=== PATIENT | female | born 1940 | race Caucasian/White ===

== ENCOUNTER 2016-08-12 10:55 | Outpatient (CLI) | payer MEDICARE, OTHER | END 2016-08-12 10:56 | disposition home or self-care (01) | DX: C19 Malignant neoplasm of rectosigmoid junction (principal) ==

== ENCOUNTER 2016-08-19 22:22 | Outpatient (CLI) | payer MEDICARE, OTHER | END 2016-08-19 22:23 | disposition home or self-care (01) | DX: R73.01 Impaired fasting glucose (principal); E78.5 Hyperlipidemia, unspecified ==

== ENCOUNTER 2016-08-24 08:00 | Outpatient (CLI) | payer MEDICARE, OTHER | END 2016-08-24 08:01 | disposition home or self-care (01) | DX: R10.13 Epigastric pain (principal); G89.29 Other chronic pain ==

== ENCOUNTER 2016-08-27 09:33 | Outpatient (CLI) | payer MEDICARE, OTHER | END 2016-08-27 09:34 | disposition home or self-care (01) | DX: C19 Malignant neoplasm of rectosigmoid junction (principal) ==

== ENCOUNTER 2016-11-16 07:17 | Outpatient (CLI) | payer MEDICARE, OTHER | END 2016-11-16 07:18 | disposition home or self-care (01) | DX: E78.5 Hyperlipidemia, unspecified (principal); C18.9 Malignant neoplasm of colon, unspecified; M12.811 Other specific arthropathies, not elsewhere classified, right shoulder ==

== ENCOUNTER 2017-03-07 14:36 | Outpatient (CLI) | payer MEDICARE, OTHER ==
[2017-03-07 19:34] LABS: BASOPHILS % (AUTO) 0.6 %; EOSINOPHILS # (AUTO) 0.1 10^3/uL (0.0-0.7); HCT - HEMATOCRIT 39.5 % (37.0-47.0); HGB - HEMOGLOBIN 13.5 g/dL (12.0-16.0); LYMPHOCYTES % (AUTO) 39.5 %; MEAN CORPUSCULAR HEMOGLOBIN 30.7 pg (27.0-31.0); MEAN CORPUSCULAR VOLUME 90.3 fL (81.0-99.0); MEAN PLATELET VOLUME 8.7 fL (7.9-10.8); MONOCYTES # (AUTO) 0.3 10^3/uL (0.0-1.0); MONOCYTES % (AUTO) 6.8 %; NEUTROPHILS # (AUTO) 2.6 10^3/uL (1.5-6.6); NEUTROPHILS % (AUTO) 51.1 %; RED BLOOD COUNT 4.38 10^6/uL (4.20-5.40); RED CELL DISTRIBUTION WIDTH 12.9 % (12.0-15.0); UNCORRECTED WHITE BLOOD COUNT 5.2 x10^3/uL; WHITE BLOOD COUNT 5.2 x10^3/uL (4.8-10.8)
[2017-03-07 20:26] LABS: ALBUMIN/GLOBULIN RATIO 1.5 (1.0-2.2); BILIRUBIN,TOTAL 0.5 mg/dL (0.2-1.0); CALCIUM 9.6 mg/dL (8.5-10.3); CREATININE 0.6 mg/dL (0.4-1.0); POTASSIUM 3.9 mmol/L (3.5-5.0); TOTAL PROTEIN 6.9 g/dL (6.7-8.2)
== END 2017-03-07 14:37 ==
LOC: LAB.WCP 14:36
PROVIDERS: ATTEND Specialist
DX: C19 Malignant neoplasm of rectosigmoid junction (principal)
CPT/HCPCS: 36415; 80053; 82378; 85025

== ENCOUNTER 2017-04-02 10:06 | Emergency (ER) | payer MEDICARE, OTHER ==
[2017-04-02] MEDS ORDERED: PROPARACAINE 0.5% OPHTH DROPS 15 ML ONE (10:53)
[2017-04-02 13:55] VITALS: BP 159/92
--- NOTE | 2017-04-02 18:53 | ED Physician Documentation ---
History of Present Illness - Stated complaint Stated Complaint: LT SWOLLEN EYE - Chief complaint Chief Complaint: Heent - History obtained from History obtained from: Patient - Additonal information Additional information: Patient is a 76-year-old female presents with a complaint of left eye pain. The left eye pain was present upon arising this morning. Left eye feels irritated and has a foreign body sensation. She does not have any problems with her visual acuity. She denies any injury or preceding illness or cold symptoms. She does have a history of glaucoma that is currently being treated otherwise she has no other eye problems. Review of systems: For pertinent positive and negatives in the review of systems please see the history of present illness, otherwise all other systems have been reviewed and are negative. Dragon disclaimer: Parts of this medical record were created using voice recognition technology. Because of the inherent limitations of this system, occasional same sounding word substitutions do occur and persist despite proofreading. Please read the document for context. Review of Systems Constitutional: denies: Fever, Chills Nose: denies: Rhinorrhea / runny nose, Congestion, Foreign Body, Reviewed and negative Throat: denies: Dental pain / toothache, Oral lesions / sores, Sore throat, Swallowed foreign body, Reviewed and negative PD PAST MEDICAL HISTORY - Past Medical History Cardiovascular: High cholesterol Respiratory: None Neuro: None Endocrine/Autoimmune: None GI: GERD : None HEENT: Glaucoma Psych: None Musculoskeletal: Osteoarthritis Derm: None Other Past Medical History: colon ca - Past Surgical History Past Surgical History: Yes General: Colonoscopy, EGD, 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 HEENT: Cataracts - Present Medications Home Medications: Ambulatory Orders Medication Instructions Recorded Confirmed Cholecalciferol (Vitamin D3) 2,000 units PO DAILY 12/14/13 04/02/17 [Vitamin D-3] Atorvastatin Calcium [Lipitor] 40 mg PO DAILY 07/29/14 04/02/17 Esomeprazole Magnesium [Nexium] 40 mg PO DAILY 07/29/14 04/02/17 Fluoxetine HCl [Prozac] 20 mg ORAL DAILY 04/02/17 04/02/17 Loperamide [Imodium] 2 mg ORAL DAILY 04/02/17 04/02/17 Ranitidine HCl 150 mg PO BID 04/02/17 04/02/17 - Allergies Allergies/Adverse Reactions: Allergies Allergy/AdvReac Type Severity Reaction Status Date / Time valdecoxib AdvReac Intermediate ulcers Verified 04/02/17 10:26 antiinflammatorys AdvReac Severe Nausea Uncoded 04/02/17 10:26 - Social History Does the pt smoke?: No Smoking Status: Never smoker Does the pt drink ETOH?: No Does the pt have substance abuse?: No - Immunizations Immunizations are current?: Yes PD ED PE NORMAL - General General: Alert and oriented X 3, No acute distress, Well developed/nourished - HEENT HEENT: Atraumatic, PERRL, EOMI, Ears normal, Moist mucous membranes, Pharynx benign, Dentition benign, Other (There is mild generalized scleral injection of the left eye. The pupillary response is normal. There is no apparent pupillary defect. There is no proptosis or enophthalmos is. The conjunctiva looks normal. There is no matting or discharge) - Neck Neck: Supple, no meningeal sign Results - Vitals Vitals: Vital Signs - 24 hr 04/02/17 04/02/17 10:22 13:54 Temperature 36.2 C L 36.7 C Heart Rate 69 55 L Respiratory 18 18 Rate Blood Pressure 163/92 H 159/92 H O2 Saturation 96 97 Oxygen O2 Source Room air PD MEDICAL DECISION MAKING - ED course Complexity details: d/w patient, d/w family ED course: Patient presents with a complaint of a painful left eye. There is mild scleral injection globally. There are pupillary response is normal as is visual acuity. Soon as I placed the topical anesthetic she had complete alleviation of her pain consistent with a superficial etiology. I did do pressure testing of the eyes bilaterally and they are normal. Left eye and is not significantly elevated. Fluorescein staining and slit-lamp examination as well as direct endoscopy was performed. There is a small amount of dye uptake on slit lamp and testing. There are multiple superficial punctate keratoses present. The patient's pain returned and was completely abated with topical anesthetic a second time. I see no evidence of acute angle closure glaucoma. It appears that her corneas mildly burnished perhaps from rubbing it. I have no endings or history of a viral etiology so I think conjunctivitis is much less likely. The patient will be treated with analgesics and will rest the eye I suspect she should be much better by tomorrow. I disposition: To home Clinical impression: 1. Superficial punctate keratoses left eye suspects secondary to rubbing at night Departure - Departure Disposition: Home, Self Care Clinical Impression: Corneal abrasion Qualifiers: Encounter type: initial encounter Laterality: left Qualified Code(s): S05.02XA - Injury of conjunctiva and corneal abrasion without foreign body, left eye, initial encounter Condition: Good Instructions: ED Eye Injury Corneal Abrasion Follow-Up: Nishant Caban MD [Primary Care Provider] - Discharge Date/Time: 04/02/17 13:54
== END 2017-04-02 13:54 | disposition home or self-care (01) ==
LOC: ED 10:06
DX: S05.02XA Injury of conjunctiva and corneal abrasion without foreign body, left eye, initial encounter (principal); X58.XXXA Exposure to other specified factors, initial encounter; H40.9 Unspecified glaucoma; Z96.659 Presence of unspecified artificial knee joint
CPT/HCPCS: 99283; J3490

== ENCOUNTER 2017-04-14 09:28 | Emergency (ER) | payer MEDICARE, OTHER ==
[2017-04-14] MEDS ORDERED: PROCHLORPERAZINE 10 MG/2 ML VIAL IVP STA (11:15)
[2017-04-14] MEDS ORDERED: cefTRIAXone 1 GM in SODIUM CHLORIDE 0.9% MINIBAG 100 ML IV STA (11:15)
[2017-04-14] MEDS ORDERED: KETOROLAC 60 MG/2 ML VIAL IVP STA (11:15)
[2017-04-14] MEDS ORDERED: SODIUM CHLORIDE 0.9% 1,000 ML IV ONE (11:15)
[2017-04-14] MEDS ORDERED: DEXAMETHASONE 10 MG/ML VIAL IVP STA (11:15)
[2017-04-14] MEDS ORDERED: diphenhydrAMINE INJ 50 MG/ML VIAL IVP STA (11:16)
[2017-04-14 11:57] LABS: BASOPHILS % (AUTO) 0.3 %; EOSINOPHILS % (AUTO) 0.2 %; HCT - HEMATOCRIT 41.8 % (37.0-47.0); LYMPHOCYTES # (AUTO) 1.5 10^3/uL (1.5-3.5); LYMPHOCYTES % (AUTO) 15.8 %; MEAN CORPUSCULAR HEMOGLOBIN 29.7 pg (27.0-31.0); MEAN CORPUSCULAR HGB CONC 33.5 g/dL (32.0-36.0); MEAN CORPUSCULAR VOLUME 88.9 fL (81.0-99.0); MONOCYTES # (AUTO) 0.4 10^3/uL (0.0-1.0); MONOCYTES % (AUTO) 4.6 %; NEUTROPHILS # (AUTO) 7.7 10^3/uL (1.5-6.6); NEUTROPHILS % (AUTO) 79.1 %; NUCLEATED RED BLOOD CELLS AUTO 0.1 /100WBC; RED BLOOD COUNT 4.71 10^6/uL (4.20-5.40); RED CELL DISTRIBUTION WIDTH 13.1 % (12.0-15.0); UNCORRECTED WHITE BLOOD COUNT 9.8 x10^3/uL; WHITE BLOOD COUNT 9.8 x10^3/uL (4.8-10.8)
[2017-04-14] MEDS ORDERED: diphenhydrAMINE INJ 50 MG/ML VIAL ONE (11:57)
[2017-04-14] MEDS ORDERED: SODIUM CHLORIDE FLUSH 0.9% 10 ML SYRINGE IVP ONE (11:58)
[2017-04-14] MEDS ORDERED: KETOROLAC 30 MG/ML VIAL ONE (11:58)
[2017-04-14] MEDS ORDERED: DEXAMETHASONE 10 MG/ML VIAL ONE (11:58)
[2017-04-14] MEDS ORDERED: PROCHLORPERAZINE 10 MG/2 ML VIAL ONE (11:58)
[2017-04-14] MEDS ORDERED: cefTRIAXone 1 GM VIAL ONE (11:59)
[2017-04-14 12:09] LABS: ALBUMIN/GLOBULIN RATIO 1.3 (1.0-2.2); BILIRUBIN,TOTAL 0.5 mg/dL (0.2-1.0); CALCIUM 9.5 mg/dL (8.5-10.3); CREATININE 0.6 mg/dL (0.4-1.0); POTASSIUM 3.9 mmol/L (3.5-5.0)
--- NOTE | 2017-04-14 12:28 | CT Preliminary Report ---
Exam: CT Head W/O IMPRESSION: 1. Mild subarachnoid hemorrhage at the right vertex. MRI could be obtained for further evaluation. [facility] The above critical findings were discussed with Dr. Garland by Dr. Karissa Brenner at 12:26 hrs on 04/14/17. SITE ID: [id number]
--- NOTE | 2017-04-14 12:30 | CT Report ---
EXAM: CT HEAD EXAM DATE: 04/14/2017 12:03 PM. CLINICAL HISTORY: Persistent headache. COMPARISON: None. TECHNIQUE: Multiaxial CT images were obtained from the foramen magnum to the vertex. IV contrast: Non e. Reformats: Coronal. In accordance with CT protocol optimization, one or more of the following dose reduction techniques w ere utilized for this exam: automated exposure control, adjustment of mA and/or KV based on patient s ize, or use of iterative reconstructive technique. FINDINGS: Parenchyma: No intraparenchymal hemorrhage. No evidence of mass, midline shift, or CT findings of acu te infarction. Gan-white differentiation is distinct. Extraaxial Spaces: Dilated sulci. No subdural or epidural fluid collections. There is high density wi thin the posterior sulci at the right apex compatible with subarachnoid hemorrhage adjacent to the fa lx (10/17-). Ventricles: The ventricles and cortical sulci are enlarged, consistent with age-related tissue loss. Sinuses: Imaged paranasal sinuses, orbits, and mastoids show no significant abnormality. Bones: No evidence of fracture or calvarial defect. Other: Diffuse chronic microangiopathic white matter changes are evident. IMPRESSION: 1. Mild subarachnoid hemorrhage at the right vertex. MRI could be obtained for further evaluation. [facility] The above critical findings were discussed with Dr. Garland by Dr. Karissa Brenner at 12:26 hrs on 04/14/17. Referring Provider Line: [phone] SITE ID: [id number]
--- NOTE | 2017-04-14 12:44 | ED Physician Documentation ---
PD HPI HEADACHE - Stated complaint Stated Complaint: HEADACHE,NAUSEA - Chief complaint Chief Complaint: Neuro - History obtained from History obtained from: Patient - History of Present Illness Timing - onset: How many days ago (4) Timing - onset during: Rest Timing - duration: Days (4) Timing - details: Abrupt onset, Still present, Waxing and waning Worst headache ever?: Worst headache ever? Location: Front Quality: Throbbing Associated symptoms: Nausea, Vomiting. No: Fever, Stiff neck Improved by: Rest, Dark room Worsened by: Light, Noise, Moving Contributing factors: No: Anticoagulated Similar symptoms before: Has not had sx before Recently seen: Emergency Dept (Seen in the ED at [place] 4 days ago with the onset of this headache.) - Additional information Additional information: 76-year-old female developed acute onset of acute headache 4 days ago. She was seen at [facility] had CT of the head done and had some improvement in her headache with some pain medication she has had headache repeated daily since then with some vomiting. Today she is having severe headache pain again and his vomiting Review of Systems Constitutional: reports: Fatigue. denies: Fever, Chills Eyes: reports: Photophobia. denies: Decreased vision Ears: denies: Ear pain Nose: reports: Congestion. denies: Rhinorrhea / runny nose Throat: denies: Sore throat Cardiac: denies: Chest pain / pressure, Palpitations Respiratory: reports: Cough. denies: Dyspnea GI: reports: Nausea, Vomiting. denies: Abdominal Pain, Constipation, Diarrhea : denies: Dysuria, Frequency Skin: denies: Rash Musculoskeletal: denies: Neck pain, Back pain, Extremity pain Neurologic: reports: Headache. 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 HEENT: Cataracts - Present Medications Home Medications: Ambulatory Orders Medication Instructions Recorded Confirmed Cholecalciferol (Vitamin D3) 2,000 units PO DAILY 12/14/13 04/02/17 [Vitamin D-3] Atorvastatin Calcium [Lipitor] 40 mg PO DAILY 07/29/14 04/02/17 Esomeprazole Magnesium [Nexium] 40 mg PO DAILY 07/29/14 04/02/17 Fluoxetine HCl [Prozac] 20 mg ORAL DAILY 04/02/17 04/02/17 Loperamide [Imodium] 2 mg ORAL DAILY 04/02/17 04/02/17 Ranitidine HCl 150 mg PO BID 04/02/17 04/02/17 - Allergies Allergies/Adverse Reactions: Allergies Allergy/AdvReac Type Severity Reaction Status Date / Time valdecoxib AdvReac Intermediate ulcers Verified 04/02/17 10:26 antiinflammatorys AdvReac Severe Nausea Uncoded 04/02/17 10:26 - Social History Does the pt smoke?: No Smoking Status: Never smoker Does the pt drink ETOH?: No Does the pt have substance abuse?: No - Immunizations Immunizations are current?: Yes - POLST Patient has POLST: No PD ED PE NORMAL - Vitals Vital signs reviewed: Yes (hypertensive ) - General General: Well developed/nourished, Other (The patient appears to be in pain with an ice bag on the top of her head and she is moaning. ) - HEENT HEENT: Atraumatic, PERRL, EOMI, Other (both TM's are erythematous in the attic and along the umbo. ) - Neck Neck: Supple, no meningeal sign, No bony TTP - Cardiac Cardiac: RRR, No murmur - Respiratory Respiratory: No respiratory distress, Clear bilaterally - Abdomen Abdomen: Soft, Non tender - Back Back: No CVA TTP, No spinal TTP - Derm Derm: Normal color, Warm and dry, No rash - Extremities Extremities: No deformity, No edema - Neuro Neuro: Alert and oriented X 3, No motor deficit, No sensory deficit, Normal speech - Psych Psych: Normal mood, Normal affect Results - Vitals Vitals: Vital Signs - 24 hr 04/14/17 04/14/17 04/14/17 09:34 10:45 12:35 Temperature 36.3 C L 36.4 C L Heart Rate 65 64 58 L Respiratory 16 15 18 Rate Blood Pressure 177/92 H 153/80 H 126/63 O2 Saturation 100 100 97 04/14/17 14:50 Temperature Heart Rate 78 Respiratory 15 Rate Blood Pressure 122/82 H O2 Saturation 99 Oxygen O2 Source Room air - Labs Labs: Laboratory Tests 04/14/17 04/14/17 04/14/17 11:43 11:43 11:43 WBC 9.8 RBC 4.71 Hgb 14.0 Hct 41.8 MCV 88.9 MCH 29.7 MCHC 33.5 RDW 13.1 Plt Count 280 MPV 8.0 Neut # 7.7 H Lymph # 1.5 [place] # 0.4 Eos # 0.0 Baso # 0.0 Absolute Nucleated RBC 0.01 Nucleated RBCs 0.1 Sodium 138 Potassium 3.9 Chloride 101 Carbon Dioxide 27 Anion Gap 10.0 BUN 22 H Creatinine 0.6 Estimated GFR (MDRD) 97 Glucose 114 H Calcium 9.5 Total Bilirubin 0.5 AST 17 ALT 18 Alkaline Phosphatase 72 Troponin I < 0.04 Total Protein 7.0 Albumin 3.9 Globulin 3.1 Albumin/Globulin Ratio 1.3 Lipase 21 L - Rads (name of study) CT head without Radiology: Prelim report reviewed (Impression: 1. Mild subarachnoid hemorrhage at the right vertex. MRI could be obtained for further evaluation.), EMP read indepedently, See rad report Procedures - IVC sono (time) 1100 Bedside IVC sono: IVC measures (cm) (1.30), IVC collapsed c insp (cm) (complete) , Dehydration PD MEDICAL DECISION MAKING - ED course Complexity details: reviewed old records, reviewed results, re-evaluated patient , considered differential, d/w patient, d/w family ED course: 76 y/o female with acute onset of headache 4 days ago so bad that she immediately called 911. She was evaluated at [facility] and had CT head then neg for bleed. She had improvement in her headache with continued background pain and each day she has had severe pain lasting 4-5 hours and she has had to take some pain medications. Today she has return of symptoms and feels like she is going to . She has vomited daily. Here in the ED she is found to be dehydrated on interrogation of the IVC and she appears to have some inflammation in the attic more on the left. She is given IV saline, compazine, benadryl, decadron and toradal and has marked improvement in her pain and affect. Her CT scan today shows sub arrachnoid bleeding in the vertex on the right. Dr. Benson neurosurgery at [facility] has graciously agreed to take this patient in transfer. Departure - Departure Disposition: 02 Transfer Acute Care Hosp Clinical Impression: Subarachnoid bleed Condition: Serious Discharge Date/Time: 04/14/17 15:10
[2017-04-14 16:29] VITALS: BP 122/82
== END 2017-04-14 15:10 | disposition short-term general hospital (02) ==
LOC: ED 09:28
DX: I60.9 Nontraumatic subarachnoid hemorrhage, unspecified (principal); Z96.659 Presence of unspecified artificial knee joint
CPT/HCPCS: 36415; 70450; 80053; 83690; 84484; 85025; 96361; 96374; 96375; 99284; 99285

== ENCOUNTER 2017-04-14 15:05 | Outpatient (CLI) | payer MEDICARE, OTHER | END 2017-04-14 15:06 | disposition short-term general hospital (02) | LOC: EMS 15:05 | PROVIDERS: ATTEND Surgery | DX: R51 Headache (principal); R11.0 Nausea | CPT/HCPCS: A0170; A0425; A0426 ==

== ENCOUNTER 2017-05-16 10:31 | Outpatient (CLI) | payer MEDICARE, OTHER ==
--- NOTE | 2017-05-16 11:35 | CT Report ---
CT BRAIN WITHOUT CONTRAST: 05/16/2017 CLINICAL INDICATION: Followup subarachnoid hemorrhage. COMPARISON: 04/14/2017 TECHNIQUE: Axial CT images of the brain were obtained without intravenous contrast. FINDINGS: The previously noted small amount of subarachnoid hemorrhage at the right posterior vertex has resolved. Mild atrophy is stable. No new hemorrhage is identified. The basilar cisterns are p atent. The visualized orbital contents and paranasal sinuses are unremarkable. IMPRESSION: RESOLUTION OF PREVIOUSLY SEEN SMALL AMOUNT OF RIGHT SUBARACHNOID HEMORRHAGE. NO NEW HEM ORRHAGE IS SEEN. NO DEVELOPING HYDROCEPHALUS. In accordance with CT protocol optimization, one or more of the following dose reduction techniques w ere utilized for this exam: automated exposure control, adjustment of mA and/or KV based on patient size, or use of iterative reconstructive technique. JOB #: [id number] EXT JOB #:[id number]
== END 2017-05-16 10:32 | disposition home or self-care (01) ==
LOC: DI 10:31
PROVIDERS: ATTEND Family Medicine
DX: I60.9 Nontraumatic subarachnoid hemorrhage, unspecified (principal)
CPT/HCPCS: 70450

== ENCOUNTER 2017-06-22 11:54 | Outpatient (CLI) | payer MEDICARE, OTHER | END 2017-06-22 11:55 | disposition critical access hospital (66) | LOC: EMS 11:54 | PROVIDERS: ATTEND Surgery | DX: R07.89 Other chest pain (principal) | CPT/HCPCS: A0425; A0427 ==

== ENCOUNTER 2017-06-22 12:13 | Emergency (ER) | payer MEDICARE, OTHER ==
[2017-06-22 13:00] LABS: BASOPHILS % (AUTO) 0.7 %; EOSINOPHILS % (AUTO) 0.4 %; HCT - HEMATOCRIT 38.3 % (37.0-47.0); HGB - HEMOGLOBIN 13.1 g/dL (12.0-16.0); LYMPHOCYTES # (AUTO) 1.4 10^3/uL (1.5-3.5); LYMPHOCYTES % (AUTO) 22.8 %; MEAN CORPUSCULAR HEMOGLOBIN 30.7 pg (27.0-31.0); MEAN CORPUSCULAR HGB CONC 34.1 g/dL (32.0-36.0); MEAN CORPUSCULAR VOLUME 90.2 fL (81.0-99.0); MEAN PLATELET VOLUME 7.9 fL (7.9-10.8); MONOCYTES # (AUTO) 0.6 10^3/uL (0.0-1.0); MONOCYTES % (AUTO) 9.1 %; NEUTROPHILS # (AUTO) 4.1 10^3/uL (1.5-6.6); RED BLOOD COUNT 4.25 10^6/uL (4.20-5.40); RED CELL DISTRIBUTION WIDTH 14.3 % (12.0-15.0); UNCORRECTED WHITE BLOOD COUNT 6.1 x10^3/uL; WHITE BLOOD COUNT 6.1 x10^3/uL (4.8-10.8)
--- NOTE | 2017-06-22 13:01 | XRAY Preliminary Report ---
Exam: XR CHEST 1 VIEW IMPRESSION: 1. No acute disease in the chest. [facility] SITE ID: [id number]
--- NOTE | 2017-06-22 13:03 | XRAY Report ---
EXAM: CHEST RADIOGRAPHY EXAM DATE: 06/22/2017 12:37 PM. CLINICAL HISTORY: Chest pain. COMPARISON: 06/10/2011. 03/04/2009. TECHNIQUE: 1 view. FINDINGS: Lungs/Pleura: No focal opacities evident. No pleural effusion. No pneumothorax. Mediastinum: Heart size is upper normal. Aorta is mildly tortuous. Aortic atherosclerosis. Other: No acute osseous abnormalities. IMPRESSION: 1. No acute disease in the chest. [facility] Referring Provider Line: [phone] SITE ID: [id number]
[2017-06-22 13:15] LABS: ALBUMIN/GLOBULIN RATIO 1.3 (1.0-2.2); BILIRUBIN,TOTAL 0.8 mg/dL (0.2-1.0); CALCIUM 9.2 mg/dL (8.5-10.3); CREATININE 0.8 mg/dL (0.4-1.0); POTASSIUM 3.6 mmol/L (3.5-5.0); TOTAL PROTEIN 6.9 g/dL (6.7-8.2)
--- NOTE | 2017-06-22 13:54 | ED Physician Documentation ---
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 no asa 2/2 recent ICH no hx CAD, denies HTN lipids DM Review of Systems Constitutional: denies: Fever, Chills Cardiac: reports: Chest pain / pressure Respiratory: denies: Dyspnea, Cough GI: denies: Abdominal Pain, Nausea, Vomiting Neurologic: denies: Generalized weakness, Focal weakness, Numbness Endocrine: denies: Easy bruising / bleeding Immunocompromised: denies: Immunocompromised PD PAST MEDICAL HISTORY - Past Medical History Past Medical History: Yes Cardiovascular: High cholesterol Respiratory: None Neuro: Other Endocrine/Autoimmune: None GI: GERD, Ulcers 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 LEAD: Breast cancer : None HEENT: Glaucoma Psych: None Musculoskeletal: Osteoarthritis Derm: None Other Past Medical History: subarachnoid bleed this past month 2016 - Past Surgical History Past Surgical History: Yes General: Colonoscopy, EGD, Other Ortho: Knee replacement, 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: Other HEENT: Cataracts - Present Medications Home Medications: Ambulatory Orders Medication Instructions Recorded Confirmed Cholecalciferol (Vitamin D3) 2,000 units PO DAILY 12/14/13 06/22/17 [Vitamin D-3] Atorvastatin Calcium [Lipitor] 40 mg PO DAILY 07/29/14 06/22/17 Fluoxetine HCl [Prozac] 20 mg ORAL DAILY 04/02/17 06/22/17 Loperamide [Imodium] 2 mg ORAL DAILY 04/02/17 06/22/17 raNITIdine HCl [Ranitidine HCl] 150 mg PO BID 04/02/17 06/22/17 Lidocaine Patch 5% [Lidoderm Patch] 1 each TOP DAILY PRN #10 patch 06/22/17 Pantoprazole [Protonix] 0 mg PO DAILY 06/22/17 06/22/17 - Allergies Allergies/Adverse Reactions: Allergies Allergy/AdvReac Type Severity Reaction Status Date / Time valdecoxib AdvReac Intermediate ulcers Verified 04/02/17 10:26 antiinflammatorys AdvReac Severe Nausea Uncoded 04/02/17 10:26 - Social History Does the pt smoke?: No Smoking Status: Never smoker Does the pt drink ETOH?: No Does the pt have substance abuse?: No - Immunizations Immunizations are current?: Yes - POLST Patient has POLST: No PD ED PE NORMAL - Vitals Vital signs reviewed: Yes - General General: Alert and oriented X 3 - HEENT HEENT: PERRL - Neck Neck: Supple, no meningeal sign - Cardiac Cardiac: RRR - Respiratory Respiratory: No respiratory distress, Clear bilaterally - Abdomen Abdomen: Soft, Non tender - Derm Derm: Normal color - Extremities Extremities: No deformity, Normal ROM s pain, No edema, No calf tenderness / cord - Neuro Neuro: Alert and oriented X 3 Results - Vitals Vitals: Vital Signs - 24 hr 06/22/17 06/22/17 06/22/17 12:14 12:29 13:29 Temperature 36.2 C L 37.0 C 36.8 C Heart Rate 84 72 68 Respiratory 18 14 16 Rate Blood Pressure 99/60 90/70 99/64 O2 Saturation 94 96 98 06/22/17 06/22/17 06/22/17 14:16 15:52 16:49 Temperature 36.8 C Heart Rate 65 66 69 Respiratory 18 15 18 Rate Blood Pressure 101/55 L 104/69 119/76 O2 Saturation 99 99 98 Oxygen O2 Source Room air - EKG (time done) 1220 Rate: Rate (enter#) (72) Rhythm: NSR Paradox: Normal Intervals: Normal OK Ischemia: Normal ST segments, Q waves (III only) - Labs Labs: Laboratory Tests 06/22/17 06/22/17 06/22/17 12:50 12:50 12:50 WBC 6.1 RBC 4.25 Hgb 13.1 Hct 38.3 MCV 90.2 MCH 30.7 MCHC 34.1 RDW 14.3 Plt Count 281 MPV 7.9 Neut # 4.1 Lymph # 1.4 L [place] # 0.6 Eos # 0.0 Baso # 0.0 Absolute Nucleated RBC 0.00 Nucleated RBC % 0.0 Sodium 137 Potassium 3.6 Chloride 104 Carbon Dioxide 22 Anion Gap 11.0 BUN 13 Creatinine 0.8 Estimated GFR (MDRD) 70 L Glucose 82 Calcium 9.2 Total Bilirubin 0.8 AST 21 ALT 15 Alkaline Phosphatase 80 Troponin I < 0.04 Total Protein 6.9 Albumin 3.9 Globulin 3.0 Albumin/Globulin Ratio 1.3 Lipase 21 L - Rads (name of study) CXR Radiology: See rad report (NACPD) CTA chest Radiology: See rad report (no aneurysm or dissection, atherosclerosis and irreg and dilation of celiac axis 9 mm max, incidental 3 mm ) PD MEDICAL DECISION MAKING - ED course ED course: neg EKG and trop after sx for > 12 hr essentially rules out ACS CTA neg for PE and dissection also no pneumoa, pna effusion, free air after EGD etc Departure - Departure Disposition: 01 Home, Self Care Clinical Impression: Chest pain Qualifiers: Chest pain type: unspecified Qualified Code(s): R07.9 - Chest pain, unspecified Condition: Good Instructions: ED Chest Pain Atypical Unkn Cause Follow-Up: Nishant Cbaan MD [Primary Care Provider] - Prescriptions: Lidocaine Patch 5% [Lidoderm Patch] 1 each TOP DAILY PRN #10 patch PRN Reason: Pain Comments: All the tests today were very reassuring The EKG and blood work do not suggest you had a heart attack The xray and CT scan do not show an aneurysm or blood clot in your chest. Also no pneumonia, or fluid around your heart or lungs, or collapsed lung, or suggestion of perforation from your recent endoscopy. The only abnormalities were a small nodule in your right lung - the radiologist suggests you get follow up imaging in [address] Caban can order - and a slightly enlarged artery in your abdomen which shouldn't be causing symptoms I am not sure what is causing the pain But given the reassuring work up I think it is safe for you to go home for Thanksgiving. One possible cause could be shingles - often the pain precedes the rash - if you develop a red blistering crusting rash on your back please come back to the ER for viral medication Otherwise I have prescribed the lidocaine patches which helped you here in the ER - you can wear that for up to 12 hr a day
[2017-06-22] MEDS ORDERED: IOPAMIDOL-300 100 ML VIAL ONE (13:56)
[2017-06-22] MEDS ORDERED: IOPAMIDOL-300 100 ML VIAL IVP ONE (15:21)
--- NOTE | 2017-06-22 15:43 | CT Report ---
EXAM: CT ANGIOGRAM CHEST EXAM DATE: 06/22/2017 03:25 PM. CLINICAL HISTORY: Cp radiate to the back. COMPARISON: None. TECHNIQUE: Routine helical imaging was performed through the chest in the arterial phase. IV contrast : 100 cc Isovue-300 IV. Reconstructions: Coronal, sagittal, and 3D MIP reconstructions of the aorta. FINDINGS: Vascular Structures: There is a mild degree of atherosclerotic plaque of the thoracic aorta. There is no thoracic aortic aneurysm or dissection. There are [id number] coronary artery calcifications . There is irregularity of the wall of the celiac axis. At approximately 8 mm distal to origin, the v essel appears mildly dilated at 9 mm in diameter. There is less than 50% stenosis of the proximal rig ht renal artery. Left renal artery appears patent without significant stenosis. Lungs/Pleura: There is a 3 mm right middle lobe pulmonary nodule. No consolidation or mass. Trachea a nd central airways appear normal in caliber. Negative for pleural effusion. Mediastinum: There are findings of previous gastric fundoplication surgery. There is a small hiatal h ernia. Heart size is normal. No pericardial effusion. No mediastinal adenopathy. Upper Abdomen: Unremarkable. Other: There is chronic degenerative disease of the lower spine. IMPRESSION: 1. No aneurysm or dissection of thoracic aorta. 2. 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 3. Incidental 3 mm right middle lobe pulmonary nodule. Most likely benign. Fleischner Society guideli adriana would recommend no follow-up in a low risk patient. In a high risk patient, optional twelve-month noncontrast chest CT. [facility] Referring Provider Line: [phone] SITE ID: [id number]
[2017-06-22] MEDS ORDERED: LIDOCAINE PATCH 5% TOP STA (16:36)
[2017-06-22] MEDS ORDERED: ACETAMINOPHEN 325 MG TABLET PO STA (16:39)
[2017-06-22] MEDS ORDERED: LIDOCAINE PATCH 5% TOP ONE (16:46)
[2017-06-22 16:50] VITALS: BP 119/76
[2017-06-22] MEDS ORDERED: ACETAMINOPHEN 325 MG TABLET PO ONE (16:50)
== END 2017-06-22 17:18 | disposition home or self-care (01) ==
LOC: EDUNIT# → ED 12:13
DX: R07.9 Chest pain, unspecified (principal); E78.00 Pure hypercholesterolemia, unspecified; K21.9 Gastro-esophageal reflux disease without esophagitis; M19.90 Unspecified osteoarthritis, unspecified site; Z87.11 Personal history of peptic ulcer disease; Z85.3 Personal history of malignant neoplasm of breast
CPT/HCPCS: 36415; 71010; 71275; 80053; 83690; 84484; 85025; 93005; 99284; A9270; Q9967

== ENCOUNTER 2017-08-10 07:34 | Emergency (ER) | payer MEDICARE, OTHER ==
[2017-08-10] MEDS ORDERED: guaiFENesin/DEXTROMETHORPHAN 10 ML UDC PO STA (07:58)
[2017-08-10] MEDS ORDERED: ALBUTEROL NEB 2.5 MG/3 ML INH STA (07:58)
--- NOTE | 2017-08-10 08:01 | ED Physician Documentation ---
History of Present Illness - Stated complaint Stated Complaint: COLD SX - Chief complaint Chief Complaint: General - Additonal information Additional information: hx from pt 76 female to ER for a productive cough, chest pain with cough, can't sleep 2/2 cough, subj fever further info - pt had SAH Apr 2017, then had GI scopes with biopsies in Jun 2017, then was sent to ER by PMD for CP in Jun and had neg CXR CTPA and cardiac work up pt states she has been coughing since er now acutely worse X 5 days her husbnad has pna she has not been travelling saw her PMD for same - no flu swab or CXR got an rx for tessalon which is not helping no leg edema Review of Systems Constitutional: reports: Fever Cardiac: reports: Chest pain / pressure (with cough) Respiratory: reports: Cough. denies: Hemoptysis, Wheezing GI: reports: Abdominal Pain (from cough) Neurologic: reports: Generalized weakness (exhausted) Endocrine: denies: Easy bruising / bleeding Immunocompromised: denies: Immunocompromised PD PAST MEDICAL HISTORY - Past Medical History Past Medical History: Yes Cardiovascular: High cholesterol Respiratory: None Neuro: Other Endocrine/Autoimmune: None GI: GERD, Ulcers DOCTOR OF PODIATRIC MEDICINE: Breast cancer : None HEENT: Glaucoma Psych: None Musculoskeletal: Osteoarthritis Derm: None - Past Surgical History Past Surgical History: Yes General: Colonoscopy, EGD, Other Ortho: Knee replacement, Carpal Tunnel surgery /DOCTOR OF PODIATRIC MEDICINE: Other HEENT: Cataracts - Present Medications Home Medications: Ambulatory Orders Medication Instructions Recorded Confirmed Cholecalciferol (Vitamin D3) 2,000 units PO DAILY 12/14/13 08/10/17 [Vitamin D-3] Atorvastatin Calcium [Lipitor] 40 mg PO DAILY 07/29/14 08/10/17 Fluoxetine HCl [Prozac] 20 mg ORAL DAILY 04/02/17 08/10/17 Loperamide [Imodium] 2 mg ORAL DAILY 04/02/17 08/10/17 raNITIdine HCl [Ranitidine HCl] 150 mg PO BID 04/02/17 08/10/17 Lidocaine Patch 5% [Lidoderm Patch] 1 each TOP DAILY PRN #10 patch 06/22/1705/18 Pantoprazole [Protonix] 0 mg PO DAILY 06/22/17 08/10/17 Albuterol 2.5 mg INH Q4H PRN #30 neb 08/10/17 guaiFENesin/DEXTROMETHORPHAN 10 ml PO Q6H PRN #120 ml 08/10/17 [Robitussin Dm] predniSONE [Deltasone] 40 mg PO DAILY 3 Days #6 tablet 08/10/17 - Allergies Allergies/Adverse Reactions: Allergies Allergy/AdvReac Type Severity Reaction Status Date / Time valdecoxib AdvReac Intermediate ulcers Verified 04/02/17 10:26 codeine AdvReac Nausea Verified 08/10/17 07:45 antiinflammatorys AdvReac Severe Nausea Uncoded 04/02/17 10:26 narcotics AdvReac Unknown Uncoded 08/10/17 07:45 - Social History Does the pt smoke?: No Smoking Status: Never smoker Does the pt drink ETOH?: No Does the pt have substance abuse?: No - Immunizations Immunizations are current?: Yes - POLST Patient has POLST: No PD ED PE NORMAL - Vitals Vital signs reviewed: Yes (normal sat afebrile) - General General: Alert and oriented X 3 - HEENT HEENT: PERRL - Neck Neck: Supple, no meningeal sign - Cardiac Cardiac: RRR - Respiratory Respiratory: Other (dec, breathing for exam causes intractable cough) - Abdomen Abdomen: Soft, Non tender - Derm Derm: Normal color - Extremities Extremities: No deformity, No edema, No calf tenderness / cord - Neuro Neuro: Alert and oriented X 3 Results - Vitals Vitals: Vital Signs - 24 hr 08/10/17 08/10/17 07:36 08:35 Temperature 36.3 C L Heart Rate 96 108 H Respiratory 20 20 Rate Blood Pressure 126/77 O2 Saturation 98 Oxygen O2 Source Room air - Labs Labs: Laboratory Tests 08/10/17 07:58 Influenza A (Rapid) Negative Influenza B (Rapid) Negative Influenza Types A,B Ag - - Rads (name of study) CXR Radiology: See rad report (no infiltrate bronchial thickening) PD MEDICAL DECISION MAKING - ED course ED course: intial HR fine - slightly tachy after neb - no fever, no pna, do not think pt is septic Departure - Departure Disposition: 01 Home, Self Care Clinical Impression: Bronchitis Condition: Good Instructions: ED URI Viral Follow-Up: Nishant Caban MD [Primary Care Provider] - Prescriptions: Albuterol 2.5 mg INH Q4H PRN #30 neb PRN Reason: wheeze and cough guaiFENesin/DEXTROMETHORPHAN [Robitussin Dm] 10 ml PO Q6H PRN #120 ml PRN Reason: Cough predniSONE [Deltasone] 40 mg PO DAILY 3 Days #6 tablet Comments: The xray did not show pneumonia The influenza test was negative I also sent a test for whooping cough but that will take a few days to be resulted - the ER staff will call you if it is positive Since the nebulizer treatment helped so much in the ER we are giving your the tubing and mask used today to take home and use with your husbands machine (you can share the machine but not the masks) and a prescription for albuterol - and also a short course of steroids to decrease briobchial wall inflammation. I also prescribed robitussin DM which worked well for your cough
--- NOTE | 2017-08-10 08:28 | XRAY Report ---
EXAM: CHEST RADIOGRAPHY EXAM DATE: 08/10/2017 08:17 AM. CLINICAL HISTORY: Productive cough subjective fever SO has pna. COMPARISON: 06/22/2017. TECHNIQUE: 2 views. FINDINGS: Lungs/Pleura: Mild lower lung bronchial thickening. No dense consolidation. No vascular congestion. Mediastinum: Heart size is normal. Aorta is mildly tortuous. Aortic atherosclerosis. Other: Degenerative changes of the thoracic spine. IMPRESSION: 1. Mild lower lobe bronchial thickening which can be seen with bronchitis or reactive airways disease . No dense consolidation. [facility] Referring Provider Line: [phone] SITE ID: [id number]
--- NOTE | 2017-08-10 08:28 | XRAY Preliminary Report ---
Exam: XR CHEST 2 VIEW X-RAY IMPRESSION: 1. Mild lower lobe bronchial thickening which can be seen with bronchitis or reactive airways disease . No dense consolidation. [facility] SITE ID: [id number]
[2017-08-10 09:44] VITALS: BP 120/78
[2017-08-12 15:11] LABS: B. PARAPERTUSSIS DNA NOT DETECTED; B. PERTUSSIS DNA NOT DETECTED; SOURCE NASAL
== END 2017-08-10 10:31 | disposition home or self-care (01) ==
LOC: ED 07:34
DX: J40 Bronchitis, not specified as acute or chronic (principal); E78.5 Hyperlipidemia, unspecified; K21.9 Gastro-esophageal reflux disease without esophagitis
CPT/HCPCS: 71046; 87275; 87276; 87801; 94640; 99283; A9270; J7613

== ENCOUNTER 2017-08-31 10:08 | Emergency (ER) | payer MEDICARE, OTHER ==
[2017-08-31 12:21] VITALS: BP 121/89
--- NOTE | 2017-08-31 12:48 | ED Physician Documentation ---
PD HPI URI - Stated complaint Stated Complaint: COUGH - Chief complaint Chief Complaint: General - History obtained from History obtained from: Patient - History of Present Illness Timing - onset: How many weeks ago (3-4) Timing duration: Weeks Timing details: Gradual onset, Still present Associated symptoms: Chills, Productive cough, Dyspnea. No: Fever Contributing factors: No: Sick contact, Travel, Immunocompromised Similar symptoms before: Has not had sx before Recently seen: Not recently seen Review of Systems Constitutional: denies: Fever, Chills Nose: reports: Congestion, Sinus pressure / pain. denies: Rhinorrhea / runny nose Throat: denies: Sore throat Cardiac: denies: Chest pain / pressure, Palpitations Respiratory: reports: Cough. denies: Dyspnea, Wheezing PD PAST MEDICAL HISTORY - Past Medical History Past Medical History: Yes Cardiovascular: High cholesterol Respiratory: None Neuro: Other Endocrine/Autoimmune: None GI: GERD, Ulcers PORTER BATH: Breast cancer : None HEENT: Glaucoma Psych: None Musculoskeletal: Osteoarthritis Derm: None - Past Surgical History Past Surgical History: Yes General: Colonoscopy, EGD, Other Ortho: Knee replacement, Carpal Tunnel surgery /PORTER BATH: Other HEENT: Cataracts - Present Medications Home Medications: Ambulatory Orders Medication Instructions Recorded Confirmed Cholecalciferol (Vitamin D3) 2,000 units PO DAILY 12/14/13 08/10/17 [Vitamin D-3] Atorvastatin Calcium [Lipitor] 40 mg PO DAILY 07/29/14 08/10/17 Fluoxetine HCl [Prozac] 20 mg ORAL DAILY 04/02/17 08/31/17 Loperamide [Imodium] 2 mg ORAL DAILY 04/02/17 08/31/17 raNITIdine HCl [Ranitidine HCl] 150 mg PO BID 04/02/17 08/31/17 Pantoprazole [Protonix] 0 mg PO DAILY 06/22/17 08/31/17 Levalbuterol HCl [Xopenex] 1.25 mg IH Q4H PRN #30 vial.neb 08/10/17 08/31/17 guaiFENesin/DEXTROMETHORPHAN 10 ml PO Q6H PRN #120 ml 08/10/17 08/31/17 [Robitussin Dm] Benzonatate [Tessalon] 100 mg PO TID PRN #25 capsule 08/31/17 Dexamethasone [Decadron] 4 mg PO DAILY #5 tablet 08/31/17 Doxycycline Monohydrate 100 mg PO BID #14 tablet 08/31/17 Levalbuterol HCl [Xopenex] 1.25 mg IH Q6H PRN #30 vial.neb 08/31/17 - Allergies Allergies/Adverse Reactions: Allergies Allergy/AdvReac Type Severity Reaction Status Date / Time valdecoxib AdvReac Intermediate ulcers Verified 08/31/17 10:14 codeine AdvReac Nausea Verified 08/10/17 07:45 antiinflammatorys AdvReac Severe Nausea Uncoded 04/02/17 10:26 narcotics AdvReac Unknown Uncoded 08/10/17 07:45 - Social History Does the pt smoke?: No Smoking Status: Never smoker Does the pt drink ETOH?: No Does the pt have substance abuse?: No - Immunizations Immunizations are current?: Yes - POLST Patient has POLST: No PD ED PE NORMAL - Vitals Vital signs reviewed: Yes - General General: Alert and oriented X 3, No acute distress, Well developed/nourished - HEENT HEENT: Moist mucous membranes, Pharynx benign - Neck Neck: Supple, no meningeal sign, No adenopathy - Cardiac Cardiac: RRR, No murmur - Respiratory Respiratory: Clear bilaterally - Abdomen Abdomen: Soft, Non tender Results - Vitals Vitals: Oxygen O2 Source Room air - Labs Labs: Laboratory Tests 08/31/17 13:07 POC Whole Bld Glucose 96 PD MEDICAL DECISION MAKING - ED course Complexity details: reviewed old records, reviewed results, considered differential, d/w patient Departure - Departure Disposition: 01 Home, Self Care Clinical Impression: Bronchitis Condition: Stable Record reviewed to determine appropriate education?: Yes Instructions: ED Upper Resp Infec Abx Tx Follow-Up: Nishant Caban MD [Primary Care Provider] - Prescriptions: Benzonatate [Tessalon] 100 mg PO TID PRN #25 capsule PRN Reason: Cough Dexamethasone [Decadron] 4 mg PO DAILY #5 tablet Doxycycline Monohydrate 100 mg PO BID #14 tablet Levalbuterol HCl [Xopenex] 1.25 mg IH Q6H PRN #30 vial.neb PRN Reason: Wheezing Comments: Drink lots of fluids. Tylenol or ibuprofen if needed for fevers and pains. Use Tessalon as needed for cough. This should not make you sleepy. Continue Xopenex nebulizer 2-3 times a day and extra times as needed for wheezing and persistent cough. Decadron steroid daily for 5 more days. Doxycycline antibiotic twice daily for a week. Recheck if not improving over the next several days. Hope that you finally get better. Discharge Date/Time: 08/31/17 13:25
[2017-08-31] MEDS ORDERED: BENZONATATE 100 MG CAPSULE PO STA (13:06)
[2017-08-31] MEDS ORDERED: DEXAMETHASONE 10 MG/ML VIAL PO STA (13:06)
[2017-08-31] MEDS ORDERED: DOXYCYCLINE 100 MG TABLET PO STA (13:07)
[2017-08-31] MEDS ORDERED: CHERRY SYRUP 10 ML UDC PO ONE (13:19)
== END 2017-08-31 13:25 | disposition home or self-care (01) ==
LOC: ED 10:08
DX: J40 Bronchitis, not specified as acute or chronic (principal); E78.00 Pure hypercholesterolemia, unspecified; K21.9 Gastro-esophageal reflux disease without esophagitis; M19.90 Unspecified osteoarthritis, unspecified site; Z87.11 Personal history of peptic ulcer disease; Z85.3 Personal history of malignant neoplasm of breast
CPT/HCPCS: 99283; A9270

== ENCOUNTER 2017-09-19 19:20 | Outpatient (CLI) | payer MEDICARE, OTHER ==
[2017-09-19 12:48] LABS: BASOPHILS % (AUTO) 1.1 %; EOSINOPHILS # (AUTO) 0.1 10^3/uL (0.0-0.7); EOSINOPHILS % (AUTO) 2.7 %; HGB - HEMOGLOBIN 14.1 g/dL (12.0-16.0); LYMPHOCYTES # (AUTO) 1.5 10^3/uL (1.5-3.5); LYMPHOCYTES % (AUTO) 33.1 %; MEAN CORPUSCULAR HEMOGLOBIN 29.3 pg (27.0-31.0); MEAN CORPUSCULAR HGB CONC 33.5 g/dL (32.0-36.0); MEAN CORPUSCULAR VOLUME 87.3 fL (81.0-99.0); MEAN PLATELET VOLUME 8.6 fL (7.9-10.8); MONOCYTES # (AUTO) 0.4 10^3/uL (0.0-1.0); MONOCYTES % (AUTO) 8.8 %; NEUTROPHILS # (AUTO) 2.5 10^3/uL (1.5-6.6); NEUTROPHILS % (AUTO) 54.3 %; PLT - PLATELET COUNT 242 10^3/uL (130-450); RED BLOOD COUNT 4.81 10^6/uL (4.20-5.40); RED CELL DISTRIBUTION WIDTH 13.4 % (12.0-15.0); WHITE BLOOD COUNT 4.5 x10^3/uL (4.8-10.8)
[2017-09-19 13:23] LABS: ALBUMIN 3.9 g/dL (3.2-5.5); ALBUMIN/GLOBULIN RATIO 1.2 (1.0-2.2); BILIRUBIN,TOTAL 0.7 mg/dL (0.2-1.0); CALCIUM 9.3 mg/dL (8.5-10.3); CREATININE 0.7 mg/dL (0.4-1.0); TOTAL PROTEIN 7.1 g/dL (6.7-8.2)
== END 2017-09-19 19:21 | disposition home or self-care (01) ==
LOC: LAB.WCP 19:20
PROVIDERS: ATTEND Specialist
DX: C18.9 Malignant neoplasm of colon, unspecified (principal)
CPT/HCPCS: 36415; 80053; 82378; 85025

== ENCOUNTER 2017-09-26 08:19 | Emergency (ER) | payer MEDICARE, OTHER ==
--- NOTE | 2017-09-26 10:44 | XRAY Report ---
EXAM: RIGHT KNEE RADIOGRAPHY EXAM DATE: 09/26/2017 10:20 AM. CLINICAL HISTORY: Right knee pain, medial inferior and worse with weight bearing. No known trauma. COMPARISON: None available. TECHNIQUE: 4 views. FINDINGS: Bones: An irregular bony or calcific density approximately 0.4 x 2 x 0.7 cm projects laterally at the level of the distal femoral diaphysis. No acute fracture identified. Joints: No subluxation. Status post unicompartmental medial arthroplasty which appears well seated in anatomic alignment without evidence of loosening. Moderate suprapatellar joint effusion. A small aysha ear calcific density projects over the lateral aspect of the lateral joint compartment. Mild patellar marginal spurring. Soft Tissues: Possible mild swelling. Minor vascular calcification posteriorly. IMPRESSION: 1. No acute fracture or dislocation. 2. Unicompartmental medial arthroplasty in anatomic alignment. 3. Moderate joint effusion. 4. Mild patellofemoral DJD. 5. Nonspecific irregular dystrophic soft tissue calcification or calcific density laterally at the le rony of the distal femur. 6. Possible chondrocalcinosis of lateral meniscus. [facility] Referring Provider Line: [phone] SITE ID: [id number]
--- NOTE | 2017-09-26 11:07 | ED Physician Documentation ---
History of Present Illness - Stated complaint Stated Complaint: KNEE PX - Chief complaint Chief Complaint: Ext Problem - History obtained from History obtained from: Patient - History of Present Illness Timing: Last night - Additonal information Additional information: 76-year-old female developed acute pain in her right knee last night. She does not know of any injury to the area she denies any excessive walking she denies going to the grocery store yesterday. She has had a partial replacement of this right knee done in 2005 and she has not had pain in this knee for some time. She is unable to bear weight on her leg today and she did have a low- grade temp last night. She felt that the area was warm last night. She does not have fever today. Review of Systems Constitutional: reports: Fever Eyes: denies: Decreased vision Ears: denies: Ear pain Nose: denies: Congestion Throat: denies: Sore throat Cardiac: denies: Chest pain / pressure Respiratory: denies: Dyspnea, Cough GI: denies: Vomiting Skin: denies: Rash Musculoskeletal: reports: Extremity pain, Joint pain, Joint swelling, Pain with weight bearing. denies: Neck pain, Back pain Neurologic: denies: Generalized weakness, Focal weakness, Numbness PD PAST MEDICAL HISTORY - Past Medical History Past Medical History: Yes Cardiovascular: High cholesterol Respiratory: None Neuro: Other Endocrine/Autoimmune: None GI: GERD, Ulcers, Other MANAGER COMPLETIONS: Breast cancer : None HEENT: Glaucoma Psych: None Musculoskeletal: Osteoarthritis Derm: None Other Past Medical History: colon cancer-colon resected. - Past Surgical History Past Surgical History: Yes General: Colonoscopy, EGD, Other Ortho: Knee replacement, Carpal Tunnel surgery /MANAGER COMPLETIONS: Other HEENT: Cataracts - Present Medications Home Medications: Ambulatory Orders Medication Instructions Recorded Confirmed Cholecalciferol (Vitamin D3) 2,000 units PO DAILY 12/14/13 08/10/17 [Vitamin D-3] Atorvastatin Calcium [Lipitor] 40 mg PO DAILY 07/29/14 08/10/17 Fluoxetine HCl [Prozac] 20 mg ORAL DAILY 04/02/17 08/31/17 Loperamide [Imodium] 2 mg ORAL DAILY 04/02/17 08/31/17 raNITIdine HCl [Ranitidine HCl] 150 mg PO BID 04/02/17 08/31/17 Pantoprazole [Protonix] 0 mg PO DAILY 06/22/17 08/31/17 Levalbuterol HCl [Xopenex] 1.25 mg IH Q4H PRN #30 vial.neb 08/10/17 08/31/17 Benzonatate [Tessalon] 100 mg PO TID PRN #25 capsule 08/31/17 Levalbuterol HCl [Xopenex] 1.25 mg IH Q6H PRN #30 vial.neb 08/31/17 - Allergies Allergies/Adverse Reactions: Allergies Allergy/AdvReac Type Severity Reaction Status Date / Time valdecoxib AdvReac Intermediate ulcers Verified 08/31/17 10:14 codeine AdvReac Nausea Verified 08/10/17 07:45 antiinflammatorys AdvReac Severe Nausea Uncoded 04/02/17 10:26 narcotics AdvReac Unknown Uncoded 08/10/17 07:45 - Social History Does the pt smoke?: No Smoking Status: Never smoker Does the pt drink ETOH?: No Does the pt have substance abuse?: No - Immunizations Immunizations are current?: Yes - POLST Patient has POLST: No PD ED PE NORMAL - Vitals Vital signs reviewed: Yes (Hypertensive mild) - General General: Alert and oriented X 3, No acute distress, Well developed/nourished - HEENT HEENT: Atraumatic, PERRL - Neck Neck: Supple, no meningeal sign - Respiratory Respiratory: No respiratory distress - Derm Derm: Normal color, Warm and dry, No rash - Extremities Extremities: No deformity, Other (There is a joint effusion to the right knee there is pain with flexion extension of the knee and the joint effusion is palpable. There is no erythema overlying the skin and it is not exquisitely tender.) - Neuro Neuro: No motor deficit, No sensory deficit Eye Opening: Spontaneous Motor: Obeys Commands Verbal: Oriented GCS Score: 15 - Psych Psych: Normal mood, Normal affect Results - Vitals Vitals: Vital Signs - 24 hr 09/26/17 09/26/17 08:44 13:16 Temperature 36.6 C 36.6 C Heart Rate 88 79 Respiratory 18 20 Rate Blood Pressure 132/76 H 111/52 L O2 Saturation 97 97 Oxygen O2 Source Room air - Labs Labs: Microbiology 09/26/17 13:16 Body Fluid Culture - Preliminary Synovial Fluid Laboratory Tests 09/26/17 09/26/17 13:16 13:16 Fluid Source SYNOVIAL Fluid Color BLOODY Fluid Clarity BLOODY Fluid WBC 2043 Fluid RBC [id number] Fluid Neutrophils % 36 Fluid Lymphocytes % 38 Fluid Eosinophils % 4 Fluid Macrophages % 22 Fld Mesothelial Cell % Not Reportable Fluid Crystals NONE SEEN - Rads (name of study) knee Radiology: Prelim report reviewed (Impression: 1. No acute fracture or dislocation.2. Unicompartmental medial arthroplasty in anatomic alignment. 3. Moderate joint effusion. 4. Mild patellofemoral DJD. 5. Nonspecific irregular dystrophic soft tissue calcification or calcific density laterally at the level of the distal femur. 6. Possible chondral calcinosis of the lateral meniscus.), EMP read indepedently, See rad report Procedures - Arthrocentesis Joint: Knee Preparation: Sterile prep and drape Anesthesia: Lidocaine 1% Fluid: Bloody, Sent for cell count, Sent for crystals, Sent for culture, Fluid obtained - cc (40), Sent for gram stain Aftercare: Dressing applied, No complications, Patient tolerated well PD MEDICAL DECISION MAKING - ED course Complexity details: reviewed results, considered differential, d/w patient ED course: 76-year-old female with a right knee joint effusion has sudden onset of pain severe pain and her knee is tapped for cell count and Gram stain. She has a bloody effusion and relief of her pain with extraction of 40 mL's of joint fluid. Departure - Departure Disposition: 01 Home, Self Care Clinical Impression: Joint effusion of knee Qualifiers: Laterality: right Qualified Code(s): M25.461 - Effusion, right knee Condition: Stable Instructions: ED Effusion Knee Follow-Up: Nishant Caban MD [Primary Care Provider] - Parth Monge MD [Physician No Access] - Discharge Date/Time: 09/26/17 14:47
[2017-09-26] MEDS ORDERED: LIDOCAINE 1% 2 ML VIAL SUBQ STA (12:44)
[2017-09-26] MEDS ORDERED: LIDOCAINE 1% 2 ML VIAL ONE (12:53)
[2017-09-26 13:17] VITALS: BP 111/52
[2017-09-26 13:46] LABS: CC,BF RBC 2581689 /mm^3
[2017-09-26 14:03] LABS: BF COLOR BLOODY; BF SOURCE SYNOVIAL
[2017-09-26 14:22] LABS: LYMPHOCYTES %,BODY FLUID 38
[2017-09-26 14:23] LABS: EOSINOPHILS %,BODY FLUID 4 %; MACROPHAGES %,BODY FLUID 22 %
== END 2017-09-26 14:47 | disposition home or self-care (01) ==
LOC: ED 08:19
DX: M25.461 Effusion, right knee (principal); Z96.651 Presence of right artificial knee joint
CPT/HCPCS: 20610; 87070; 87205; 89051; 89060; 99283

== ENCOUNTER 2017-11-30 12:12 | Observation (INO) | payer MEDICARE, OTHER ==
--- NOTE | 2017-11-30 12:46 | ED Physician Documentation ---
PD HPI FOCAL NEURO - Stated complaint Stated Complaint: TROUBLE TALKING - Chief complaint Chief Complaint: Neuro - History obtained from History obtained from: Patient - History of Present Illness Timing - onset: Today (76-year-old woman with history of spontaneous subarachnoid hemorrhage about 8 months ago and glaucoma which is managed conservatively and expectantly went to her eye doctors today for a routine glaucoma check. She was doing visual field testing, per her description she had a patch over one eye and went blind in the other eye briefly during the field testing. It was the entirety of her vision except the central part. It was not really an amaurosis fugax, nor was it in hemianopsia. She was referred to her physician for concern for stroke, and when she called her physician she was referred here for evaluation and treatment. I did speak with the eye doctor who saw her earlier, Dr. Gaxiola who said that she passed visual field testing and her funduscopic examination was normal. The patient has no acute complaints other than this.) Review of Systems Ten Systems: 10 systems reviewed and negative Constitutional: denies: Fever, Chills Nose: denies: Rhinorrhea / runny nose, Congestion Cardiac: denies: Chest pain / pressure, Palpitations Respiratory: denies: Dyspnea GI: denies: Abdominal Pain PD PAST MEDICAL HISTORY - Past Medical History Cardiovascular: High cholesterol Respiratory: None Neuro: Other Endocrine/Autoimmune: None GI: GERD, Ulcers, Other PROTECTION SPECIALIST: Breast cancer : None HEENT: Glaucoma Psych: None Musculoskeletal: Osteoarthritis Derm: None - Past Surgical History Past Surgical History: Yes General: Colonoscopy, EGD, Other Ortho: Knee replacement, Carpal Tunnel surgery /PROTECTION SPECIALIST: Other HEENT: Cataracts - Present Medications Home Medications: Ambulatory Orders Medication Instructions Recorded Confirmed Cholecalciferol (Vitamin D3) 2,000 units PO DAILY 12/14/13 08/10/17 [Vitamin D-3] Atorvastatin Calcium [Lipitor] 40 mg PO DAILY 07/29/14 08/10/17 Fluoxetine HCl [Prozac] 20 mg ORAL DAILY 04/02/17 08/31/17 Loperamide [Imodium] 2 mg ORAL DAILY 04/02/17 08/31/17 raNITIdine HCl [Ranitidine HCl] 150 mg PO BID 04/02/17 08/31/17 Pantoprazole [Protonix] 0 mg PO DAILY 06/22/17 08/31/17 - Allergies Allergies/Adverse Reactions: Allergies Allergy/AdvReac Type Severity Reaction Status Date / Time valdecoxib AdvReac Intermediate ulcers Verified 11/30/17 12:34 codeine AdvReac Nausea Verified 11/30/17 12:34 antiinflammatorys AdvReac Severe Nausea Uncoded 04/02/17 10:26 narcotics AdvReac Unknown Uncoded 08/10/17 07:45 - Social History Does the pt smoke?: No Smoking Status: Never smoker Does the pt drink ETOH?: No Does the pt have substance abuse?: No - Immunizations Immunizations are current?: Yes - POLST Patient has POLST: No PD ED PE NORMAL - Vitals Vital signs reviewed: Yes - General General: Alert and oriented X 3, No acute distress - HEENT HEENT: Other (Pupils are still dilated from her ophthalmologic visit, they are nonreactive. Extraocular movements are intact.) - Neck Neck: Supple, no meningeal sign, No bony TTP - Cardiac Cardiac: RRR, No murmur - Respiratory Respiratory: No respiratory distress, Clear bilaterally - Abdomen Abdomen: Normal bowel sounds, Soft, Non tender - Extremities Extremities: No deformity, No tenderness to palpate, No edema, No calf tenderness / cord - Neuro Neuro: Alert and oriented X 3, Normal speech Eye Opening: Spontaneous Motor: Obeys Commands Verbal: Oriented GCS Score: 15 NIHSS - Time Time: 14:35 - Level of Consciousness Level of consciousness: (0) Alert, Keenly responsive LOC Questions: (0) Answers both Q's correct LOC Commands: (0) Performs both correctly - Gaze Best Gaze: (0) Normal - Visual Visual: (0) No loss - Facial Palsy Facial Palsy: (0) Normal, symmetrical movement - Motor Arms (both separate) Motor Arm (right): (0) No drift Motor Arm (left): (0) No drift - Motor Legs (both separate) Motor Leg (right): (0) No drift Motor Leg (left): (0) No drift - Limb Ataxia Limb Ataxia: (0) Absent - Sensory Sensory: (0) Normal - Best Language Best Language: (0) No aphasia - Dysarthria Dysarthria: (0) Normal - Extinction and Inattention (formally neg Extinction and inattention: (0) No abnormality - Total Score/Results Total Score/Result: 0 Results - Vitals Vitals: Vital Signs - 24 hr 11/30/17 11/30/17 12:15 13:34 Temperature 36 C L Heart Rate 91 72 Respiratory 20 15 Rate Blood Pressure 141/87 H 125/81 H O2 Saturation 94 93 Oxygen O2 Source Room air - Labs Labs: Laboratory Tests 11/30/17 12:45 Sodium 139 Potassium 3.2 L Chloride 104 Carbon Dioxide 26 Anion Gap 9.0 BUN 16 Creatinine 0.6 Estimated GFR (MDRD) 97 Glucose 86 Calcium 9.2 - Rads (name of study) CTA Neck Radiology: EMP read contemporaneously (Partially calcified plaque at the right carotid bifurcation with severe eccentric stenosis, about 75%, V1 segment of left vertebral artery cannot be seen.) PD MEDICAL DECISION MAKING - ED course ED course: 76-year-old woman presents after going to the eye doctors this morning for routine follow-up on her glaucoma with a transient episode of blindness that really did not fit an anatomic explanation for stroke. That said she went to for CT angiography imaging which demonstrated a pretty tight carotid stenosis on the right. At that point my plan was to call her primary care physician and recommend vascular follow-up, however I went back into the room to tell the patient the findings and at this point she complained of left facial numbness. Nothing else new at that point. I did update her primary care physician Dr. Caban but also spoke with Dr. Mari at [facility], the neurology team who recommended bringing her in here for an MRI, TTE on aspirin and high-dose statins and if the MRI is positive for an acute stroke they would like her transferred then, if it is not positive for an acute stroke she can follow up with her vascular clinic within 2 weeks for fixing the carotid stenosis. Spoke with Dr. Baugh for observation at 3:30 PM. Departure - Departure Disposition: ED Place in Observation Clinical Impression: Cerebrovascular accident (CVA) Qualifiers: CVA mechanism: embolism Precerebral and cerebral artery: middle cerebral artery Laterality of affected vessel: right Qualified Code(s): I63.411 - Cerebral infarction due to embolism of right middle cerebral artery Condition: Stable
[2017-11-30 13:17] LABS: CALCIUM 9.2 mg/dL (8.5-10.3); CREATININE 0.6 mg/dL (0.4-1.0)
[2017-11-30] MEDS ORDERED: IOPAMIDOL-300 100 ML VIAL ONE (14:17)
--- NOTE | 2017-11-30 15:13 | CT Preliminary Report ---
Exam: CT NECK ANGIO Impression: 1. There is partially calcified atherosclerotic plaque at the right carotid bifurcation with severe, eccentric stenosis in mid to distal right carotid bulb. This appears to represent about 75% NASCET ty pe narrowing. 2. No pathology is identified in the left carotid artery or right vertebral artery. 3. V1 segment of the left vertebral artery are obscured due to beam Doherty artifact from dense contr ast in adjacent venous structures. The possibility of stenosis or dissection cannot be excluded. In t he V2 segment at a few levels (see above). The V3 segment appears widely patent. A preliminary report for this examination was called to Dr. Currie, following interpretation on 09/2017 at approximately 1510 hrs. The above findings were discussed with ENID Currie by Dr. Stuart House at 15:11 hrs on 11/30/17. SITE ID: [id number]
--- NOTE | 2017-11-30 15:29 | CT Preliminary Report ---
Exam: CT HEAD ANGIO Impression: Head CT 1. Chronic changes in the brain, as described, appear essentially stable when compared to previous he ad CT 05/16/2017. 2. No acute intracranial pathology is demonstrated. In particular, there is no intracranial hemorrhag e and no evidence of acute, large vessel territory cortical infarction (ASPECTS score = 10) CT angiogram head Unremarkable study. In particular, no evidence of occlusion or hemodynamically significant stenosis a ffecting main branches of the anterior or posterior circulations. SITE ID: [id number]
[2017-11-30] MEDS ORDERED: ATORVASTATIN 40 MG TABLET PO STA (15:32)
[2017-11-30] MEDS ORDERED: ASPIRIN CHEW 81 MG TABLET PO STA (15:32)
[2017-11-30] MEDS ORDERED: ACETAMINOPHEN 325 MG TABLET PO PRN (15:40)
[2017-11-30] MEDS ORDERED: IBUPROFEN 400 MG TABLET PO PRN (15:40)
[2017-11-30] MEDS ORDERED: SODIUM CHLORIDE FLUSH 0.9% 10 ML SYRINGE IVP PRN (15:40)
[2017-11-30] MEDS ORDERED: ZOLPIDEM 5 MG TABLET PO PRN (15:40)
[2017-11-30] MEDS ORDERED: PROMETHAZINE 25 MG/1 ML VIAL IM PRN (15:40)
[2017-11-30] MEDS ORDERED: ONDANSETRON 4 MG/2 ML VIAL IVP PRN (15:40)
[2017-11-30] MEDS ORDERED: PROCHLORPERAZINE 10 MG/2 ML VIAL IVP PRN (15:40)
[2017-11-30] MEDS ORDERED: IOPAMIDOL-300 100 ML VIAL IVP ONE (15:43)
[2017-11-30] MEDS ORDERED: SODIUM CHLORIDE FLUSH 0.9% 10 ML SYRINGE IVP SCH (17:00)
[2017-11-30] MEDS ORDERED: POTASSIUM CHLORIDE 20 MEQ TABLET PO ONE (17:24)
--- NOTE | 2017-11-30 17:28 | HISTORY & PHYSICAL EXAMINATION ---
Chief Complaint - Chief Complaint Chief Complaint: numbness at left eye History of Present Illness - Admitted From Admitted From:: ER - History Obtained From History obtained from: pt - History of Present Illness HPI Comment/Other: Ms. Armendariz is a 76-yrs-old female with a PMH significant for hx of spontaneous subarachnoid hemorrhage which was treated and managed by [facility] about 8 months ago, high cholesterol, GERD, gastric ulcer, hx of breast cancer, Osteoarthritis, and glaucoma which has been managed by her distribution center assistant, who present ER for complaints of "eye numbness". Pt went to see her distribution center assistant today for a routine glaucoma check. Pt report she passed visual field testing and her examination was normal. But pt complained "eye numbness." Then pt was referred by her physician to ER for evaluation and treatment. Pt reported she had left facial numbness in the ER today. Upon examination to pt, pt report she did not have facial numbness. She tapped to her bilateral face by her either side hand, pt state "I did not have numbness." pt denies abnormal sensation bilaterally. The patient has no acute complaints, denies focus neurological deficits. NIH stroke is zero at the most. CT angiogram head is unremarkable. CTA of neck reveals right carotid bifurcation with severe and eccentric stenosis, about 75% NASCET type narrowing. Per ER provider report, the provider did update the pt's condition to her primary care Dr. Caban, but also spoke with Dr. Mari at [facility]. The neurology team in [facility] recommended bringing her in [facility] for an MRI, TTE on aspirin and high- dose statins and if the MRI is positive for an acute stroke, the neurology team in [facility] would like her transferred [facility]. But if the test is not positive for an acute stroke, pt is recommended to follow up with her vascular surgeon within 2 weeks for operation of the carotid stenosis. Pt is admitted in observation unit for stroke/TIA work up. 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 Social History Notes: pt did not provide her social history at this time - POLST Patient has POLST: No POLST Status: Full Code Meds/Allgy - Home Medications Home Medications: Ambulatory Orders Medication Instructions Recorded Confirmed Cholecalciferol (Vitamin D3) 2,000 units PO DAILY 12/14/13 11/30/17 [Vitamin D-3] Atorvastatin Calcium [Lipitor] 40 mg PO DAILY 07/29/14 11/30/17 Fluoxetine HCl [Prozac] 20 mg ORAL DAILY 04/02/17 11/30/17 Esomeprazole Magnesium 40 mg PO DAILY 11/30/17 11/30/17 - Allergies Allergies/Adverse Reactions: Allergies Allergy/AdvReac Type Severity Reaction Status Date / Time valdecoxib AdvReac Intermediate ulcers Verified 11/30/17 12:34 codeine AdvReac Nausea Verified 11/30/17 12:34 antiinflammatorys AdvReac Severe Nausea Uncoded 04/02/17 10:26 narcotics AdvReac Unknown Uncoded 08/10/17 07:45 Review of Systems - Constitutional Constitutional: denies: Fatigue, Fever, Chills, Malaise, Weakness, Poor appetite , Diaphoresis, Night sweats - Eyes Eyes: reports: Vision loss. denies: Pain, Irritation, Blurred vision, Spots in vision, Dipolpia - Ears, Nose & Throat Ears, Nose & Throat: denies: Ear pain, Hearing loss, Hearing aids, Tinnitus, Vertigo, Nasal pain, Nasal discharge, Nosebleeds, Sore throat, Mouth lesions, Bleeding gums - Cardiovascular Cariovascular: denies: Irregular heart rate, Palpitations, Chest pain, Edema, Lightheadedness, Syncope, Exertional dyspnea, Decr. exercise tolerance - Respiratory Respiratory: denies: Cough, Sputum production, Wheezing, Snoring, Hemoptysis, Orthopnea, SOB at rest, SOB with exertion - Gastrointestinal Gastrointestinal: denies: Abdominal pain, Abdominal distention, Constipation, Diarrhea, Change in bowel habits, Rectal bleeding, Black stools, Bloody stools, Nausea, Vomiting, Kehinde blood emesis, Coffee grounds emesis, Reflux/heartburn, Poor appetite - Genitourinary Genitourinary: denies: Dysuria, Urgency, Hematuria, Incontinence, Flank pain, Nocturia, Urethral discharge - Musculoskeletal Musculoskeletal: denies: Muscle pain, Back pain, Muscle aches, Stiffness, Limited range of motion, Muscle weakness, Gout, Joint pain - Integumentary Integumentary: denies: Rash, Pruritis, Lesions, Dryness, Lumps, Acne, Pigment changes - Neurological Neurological: reports: Numbness. denies: General weakness, Focal weakness, Headache, Dizziness, Pre-existing deficit, Abnormal gait, Seizures, Incoordination, Slurred speech - Psychiatric Psychiatric: reports: Anxiety. denies: Depression, Suicidal, Delusions, Hallucinations, Homicidal - Endocrine Endocrine: denies: Polyuria, Polydypsia, Polyphagia, Intolerance to cold - Hematologic/Lymphatic Hematologic/Lymphatic: denies: Anemia, Bruising, Petechiae, Blood clots, Lymphadenopathy, Bleeding tendencies Exam - Vital Signs Reviewed Vital Signs: Yes Vital Signs: Vital Signs x48h Pulse Resp BP Pulse Ox 11/30/17 16:05 75 16 118/76 93 - Physical Exam General Appearance: positive: Alert, Mild distress. negative: Lethargic Eyes Bilateral: positive: Normal inspection, PERRL, No lid inflammation, Conjunctivae nml ENT: positive: ENT inspection nml, Pharynx nml, No signs of dehydration. negative: Purulent nasal drainage, Pharyngeal erythema, Oral lesions, Dry mucous membranes Neck: positive: Nml inspection, Thyroid nml, No JVD, Trachea midline. negative : Thyromegaly, Lymphadenopathy (R), Lymphadenopathy (L), Stiff neck, Carotid bruit, Swelling/bruising, Tracheal deviation Respiratory: positive: Chest non-tender, No respiratory distress, Breath sounds nml. negative: Wheezes, Rales, Rhonchi Cardiovascular: positive: Regular rate & rhythm, No murmur, No gallop. negative : Irregularly irregular, Extrasystoles, Tachycardia, Bradycardia, JVD present, Systolic murmur, Diastolic murmur Peripheral Pulses: positive: 2+ Abdomen: positive: Non-tender, No organomegaly, Nml bowel sounds, No distention. negative: Tenderness, Guarding, Rebound Back: positive: Nml inspection. negative: CVA tenderness (R), CVA tenderness (L ) Skin: positive: Color nml, No rash, Warm, Dry. negative: Cyanosis, Diaphoresis , Pallor Extremities: positive: Non-tender, Full ROM, Nml appearance. negative: Calf tenderness, Joint swelling, Oscar's sign/cords Neurologic/Psychiatric: positive: Oriented x3, Motor nml, Sensation nml. negative: Sensory loss, Facial droop, Slurred/abnml speech, Depressed mood/ affect Conclusion/Plan - Problem List (1) TIA (transient ischemic attack) Conclusion/Plan: pt reported her left facial numbness in the ER, but now she denies she had facial numbness, only has "eye numbness." Pt is with hx of CVA, so pt is admitted in observation of TIA workup. MRI of brain, CTA of brain and neck, ECHO Aspirin and high dosage of Statin per recommendation tele and vital monitor Neuro check pt denies any problem for swallowing, regular diet to pt (2) Hx of subarachnoid hemorrhage Conclusion/Plan: per [facility] team recommendation, pt is only given 81 mg Aspirin neuro check closely monitor tele, vital (3) GERD (gastroesophageal reflux disease) Conclusion/Plan: stable, no new complaint for GERD. add pepcid for GI prophylaxis (4) Glaucoma Conclusion/Plan: on acute events. pt just finished her eye examination encourage pt follow up distribution center assistant closely (5) Osteoarthritis Conclusion/Plan: no new complaints, stable, monitor closely (6) DVT prophylaxis Conclusion/Plan: SCD (7) Full code status Conclusion/Plan: pt request full code status - Lab Results Fish Bones: 11/30/17 12:45 Core Measures - Anticipated LOS I expect patient to be DC'd or transferred within 96 hours.: Yes - DVT/VTE - Prophylaxis VTE/DVT Device ordered at admit?: Yes VTE/DVT Prophylaxis med ordered at admit?: No Not Ordered - Medical Reason: Contraindicated
--- NOTE | 2017-11-30 17:36 | CT Report ---
CT ANGIOGRAM NECK INDICATION: 76-year-old female with transient blindness that has now resolved. Concern for a possible transient ischemic attack/cerebral vascular accident. Please assess. TECHNIQUE: 80 mL of Isovue 300 contrast were injected at a rapid rate through a large bore, left antecubital int ravenous catheter. The neck was scanned helically during arterial phase. Data was reconstructed into 0.5 mm axial images. In addition, MIP reconstructions have been generated in multiple projections to allow better assessment of the extracranial carotid and vertebral arteries. Significant arterial stenoses will be assessed using NASCET type measurements. In accordance with CT protocol optimization, one or more of the following dose reduction techniques w ere utilized for this exam: automated exposure control, adjustment of mA and/or KV based on patient s ize, or use of iterative reconstructive technique. COMPARISON: None. FINDINGS: There is normal branching of the aortic arch. There is extensive beam-hardening artifact from dense c ontrast in the overlying left brachiocephalic vein that severely limits assessment of the first-order supra-aortic arteries. There are calcified plaques at the origins of the innominate and left common carotid arteries. No obvious associated stenosis is demonstrated, however, evaluation is severely atkinson ited due to the beam-foy artifact. There is partially calcified plaque in proximal 8 mm of the le ft subclavian artery. The lumen appears to be reduced to about 5.5 mm at level of maximal narrowing. More distally, the artery measures about 8 mm diameter. This is consistent with about a 30% NASCET ty pe stenosis. Right carotid artery: There is partially calcified plaque at the carotid bifurcation. There is severe, eccentric narrowing in mid to distal bulb. At level of maximal narrowing, the lumen is reduced to about 1 mm diameter. Mo re distally, the artery measures close to 4 mm diameter suggesting a roughly 75% NASCET type stenosis . There is moderate narrowing at the origin of the ECA. Left carotid artery: The common carotid artery and carotid bifurcation appear widely patent. The extracranial ICA is elong ated and tortuous but appears widely patent. Right vertebral artery: Widely patent from origin to distal V3 segment. Left vertebral artery: The origin and majority of V1 segment are obscured or partially obscured due t o beam-hardening artifact from dense contrast in adjacent venous structures. The possibility of steno sis at the origin cannot be excluded. There is mild narrowing in the V2 segment at a few levels, seco ndary to mass-effect by large, left-sided uncovertebral osteophytes. The V3 segment appears widely pa tent. Incidentally noted are a few tiny, hypodense lesions in right lobe of thyroid, consistent with benign disease (i.e. adenomas or colloid cysts). IMPRESSION: 1. There is partially calcified atherosclerotic plaque at the right carotid bifurcation with severe, eccentric stenosis in mid to distal right carotid bulb. This appears to represent about 75% NASCET ty pe narrowing. 2. No pathology is identified in the left carotid artery or right vertebral artery. 3. Portions of the V1 segment of the left vertebral artery are obscured due to beam-foy artifact from dense contrast in adjacent venous structures. The possibility of stenosis or dissection cannot b e excluded. Mild stenoses in the V2 segment at a few levels (see above). The V3 segment appears widel y patent. A preliminary report for this examination was called to Dr. Currie, following interpretation on 09/2017 at approximately 1510 hrs. Referring Provider Line: [phone] SITE ID: [id number]
--- NOTE | 2017-11-30 17:38 | CT Report ---
CT HEAD WITHOUT AND WITH CONTRAST AND CT ANGIOGRAM HEAD INDICATION: 76-year-old female. Transient blindness that has now resolved. Concern for TIA/CVA. TECHNIQUE: Head CT Sequential 5 mm axial images were obtained through the brain, prior to and following the CT angiogram . CT angiogram head 80 mL of Isovue-300 contrast were injected at a rapid rate through a large bore left antecubital intr avenous catheter. The head was scanned helically during arterial phase. Data was reconstructed into 0 .5 mm axial images. In addition, MIP reconstructions have been generated in multiple projections to a llow better assessment of the intracranial arteries. In accordance with CT protocol optimization, one or more of the following dose reduction techniques w ere utilized for this exam: automated exposure control, adjustment of mA and/or KV based on patient s ize, or use of iterative reconstructive technique. COMPARISON: Head CT 05/16/2017. FINDINGS: Head CT There is mild ex vacuo enlargement of the third and lateral ventricles, unchanged. No hydrocephalus. A mild amount of white matter disease is identified in the supratentorial brain, likely representing chronic microangiopathy. Attenuation of cortex and white matter is otherwise unremarkable. Noted is a symmetric mineralization of the right globus pallidus (image 17 of series #3). This should not be mis taken for minor intraparenchymal hemorrhage. There is a small, densely ossified extra-axial mass lesion along the floor of the left anterior crani al fossa, immediately above the left orbital roof, unchanged when compared to the previous study. The re is no definite continuity with the bone at the floor of the skull base (see image #9 of series #9) . Evaluation for enhancement is very difficult due to the small size and very dense nature. This coul d represents a partially calcified meningioma. There does not appear to be significant associated mas s effect. No enhancing space-occupying mass lesion is demonstrated. There appears be normal intravascular contr ast enhancement in the dural venous sinuses and deep venous structures. The skull and skull base appear intact. Middle ear cavities and mastoid air cells are clear. The para nasal sinuses are essentially clear. CT angiogram head Anterior circulation: There is calcified atherosclerotic plaque scattered throughout the carotid siphons without significan t associated internal carotid artery stenosis. No ICA aneurysm is demonstrated. The A1 segment of the right anterior cerebral artery is hypoplastic with larger left A1 segment. An anterior communicating artery is demonstrated. There appears to good filling of the A2 and distal STEFANIE branches bilaterally. No obvious STEFANIE branch occlusion is demonstrated. The middle cerebral arteries are unremarkable. No a neurysm is identified and there is no evidence of occlusion or hemodynamically significant stenosis a ffecting main branches of either MCA. There appear to be a similar number of opacified M3 and M4 bran ches bilaterally. Posterior circulation: The vertebral arteries and PICAs are patent. The left PICA is diffusely small; however, no obvious fo suly stenosis is demonstrated. The basilar artery, superior cerebellar arteries and main branches of t he posterior cerebral arteries appear widely patent. There is a moderate-sized right posterior commun icating artery. No definite left posterior communicator is demonstrated. No aneurysms are seen arisin g from the basilar artery trunk or apex. IMPRESSION: Head CT 1. Chronic changes in the brain, as described, appear essentially stable when compared to previous ad CT 05/16/2017. 2. No acute intracranial pathology is demonstrated. In particular, there is no intracranial hemorrhag e and no evidence of acute, large vessel territory cortical infarction (ASPECTS score = 10). CT angiogram head Unremarkable study. In particular, no evidence of occlusion or hemodynamically significant stenosis a ffecting main branches of the anterior or posterior circulations. Referring Provider Line: [phone] SITE ID: [id number]
[2017-11-30 17:48] VITALS: BP 167/80
[2017-11-30] MEDS ORDERED: ATORVASTATIN 40 MG TABLET PO SCH (21:00)
--- NOTE | 2017-11-30 21:29 | DISCHARGE SUMMARY ---
Discharge Summary Discharge Date: 11/30/17 Discharging Provider: GARCIA Primary Care Provider: Nishant Gaviria Condition at Discharge: Poor Discharge Disposition: 07 Against Medical Advice - DIAGNOSES Admission Diagnoses: (1) TIA (transient ischemic attack) (2) Hx of subarachnoid hemorrhage (3) GERD (gastroesophageal reflux disease) (4) Glaucoma (5) Osteoarthritis Discharge Diagnoses with Status of Each Condition: pt signed AMA and left hospital. I can not assess the status of each diagnosis of the below. (1) TIA (transient ischemic attack) (2) Hx of subarachnoid hemorrhage (3) GERD (gastroesophageal reflux disease) (4) Glaucoma (5) Osteoarthritis - HPI History of Present Illness: refer from my HPI on admission as the following: Ms. Wallace is a 76-yrs-old female with a PMH significant for hx of spontaneous subarachnoid hemorrhage which was treated and managed by [facility] about 8 months ago, high cholesterol, GERD, gastric ulcer, hx of breast cancer, Osteoarthritis, and glaucoma which has been managed by her lay out and detail drafter, who present ER for complaints of "eye numbness". Pt went to see her lay out and detail drafter today for a routine glaucoma check. Pt report she passed visual field testing and her examination was normal. But pt complained "eye numbness." Then pt was referred by her physician to ER for evaluation and treatment. Pt reported she had left facial numbness in the ER today. Upon examination to pt, pt report she did not have facial numbness. She tapped to her bilateral face by her either side hand, pt state "I did not have numbness." pt denies abnormal sensation bilaterally. The patient has no acute complaints, denies focus neurological deficits. NIH stroke is zero at the most. CT angiogram head is unremarkable. CTA of neck reveals right carotid bifurcation with severe and eccentric stenosis, about 75% NASCET type narrowing. Per ER provider report, the provider did update the pt's condition to her primary care Dr. Caban, but also spoke with Dr. Mari at [facility]. The neurology team in [facility] recommended bringing her in [facility] for an MRI, TTE on aspirin and high- dose statins and if the MRI is positive for an acute stroke, the neurology team in [facility] would like her transferred to [facility]. But if the test is not positive for an acute stroke, pt is recommended to follow up with her vascular surgeon within 2 weeks for operation of the carotid stenosis. Pt is admitted in observation unit for stroke/TIA work up. - HOSPITAL COURSE Hospital Course: Pt was admitted for left facial numbness and TIA work up, although pt complained she had left facial numbness in ER but denied when I interviewed her. When I interviewed her, I discussed with her for the plan in the [facility]. The plan was: "The neurology team in [facility] recommended bringing her in [facility] for an MRI, TTE on aspirin and high-dose statins and if the MRI is positive for an acute stroke, the neurology team in [facility] would like her transferred to them; But if the test is not positive for an acute stroke, pt is recommended to follow up with her vascular surgeon within 2 weeks for operation of the carotid stenosis; The admission in [facility] is overnight, in the observation unit, until dramatically hemodynamical changing." Pt understood and she asked me if the test is not positive for an acute stroke, can she still be transferred to [facility] for operation of the carotid stenosis. I answered her, I will still call [facility] even if the test is not positive for an acute stroke, but the decision if pt could be accepted by [facility], was dependent on them. Pt stated she understood. It was very surprised to me when nurse reported pt requested to sign AMA because registration staff informed pt was in the status of observation , she could not afford the medical fee as the status of observation in the hospital. I went to see pt and discussed with pt about the risks of AMA. Pt state she knew the risks of AMA. Pt stated ER provider did not tell her she was in the status of observation otherwise she will walk away to home. At the same time she told me she will put me in the highest court to niraj me. But she did not tell me the reason why she will put me in the highest court to niraj me. In the that time, I stopped the conversation with her. I reported the situations to my dimension quarry supervisor Dr. Bina Tanner. Dr. Tanner did go to see pt but pt signed AMA and already left the hospital. - ALLERGIES Allergies/Adverse Reactions: Allergies Allergy/AdvReac Type Severity Reaction Status Date / Time valdecoxib AdvReac Intermediate ulcers Verified 11/30/17 12:34 codeine AdvReac Nausea Verified 11/30/17 12:34 antiinflammatorys AdvReac Severe Nausea Uncoded 04/02/17 10:26 narcotics AdvReac Unknown Uncoded 08/10/17 07:45 - MEDICATIONS Home Medications: Ambulatory Orders Medication Instructions Recorded Confirmed Cholecalciferol (Vitamin D3) 2,000 units PO DAILY 12/14/13 11/30/17 [Vitamin D-3] Atorvastatin Calcium [Lipitor] 40 mg PO DAILY 07/29/14 11/30/17 Fluoxetine HCl [Prozac] 20 mg ORAL DAILY 04/02/17 11/30/17 Esomeprazole Magnesium 40 mg PO DAILY 11/30/17 11/30/17 - PHYSICAL EXAM AT DISCHARGE Physical Exam Other/Comments: pt signed AMA and left the hospital. I could not get the chance to assess the pt - LABS Result Diagrams: 11/30/17 12:45 - DIAGNOSTIC IMAGING Diagnostic Imaging Results Comments: PT NAME: MALA WALLACE MR#: [id number] ADM IN/OBS AGE: 76 CI DT/TM: 11/30/1709/18/1252 PCP: Nishant Caban MD : 1940 ATT: Mikey Baugh MD SEX: F ORD: Stan Currie MD EXAM: [id number] CT/HEADANG (97222) CT HEAD WITHOUT AND WITH CONTRAST AND CT ANGIOGRAM HEAD INDICATION: 76-year-old female. Transient blindness that has now resolved. Concern for TIA/CVA. TECHNIQUE: Head CT Sequential 5 mm axial images were obtained through the brain, prior to and following the CT angiogram. CT angiogram head 80 mL of Isovue-300 contrast were injected at a rapid rate through a large bore left antecubital intravenous catheter. The head was scanned helically during arterial phase. Data was reconstructed into 0.5 mm axial images. In addition, MIP reconstructions have been generated in multiple projections to allow better assessment of the intracranial arteries. In accordance with CT protocol optimization, one or more of the following dose reduction techniques were utilized for this exam: automated exposure control, adjustment of mA and/or KV based on patient size, or use of iterative reconstructive technique. COMPARISON: Head CT 05/16/2017. FINDINGS: Head CT There is mild ex vacuo enlargement of the third and lateral ventricles, unchanged. No hydrocephalus. A mild amount of white matter disease is identified in the supratentorial brain, likely representing chronic microangiopathy. Attenuation of cortex and white matter is otherwise unremarkable. Noted is asymmetric mineralization of the right globus pallidus ( image 17 of series #3 ). This should not be mistaken for minor intraparenchymal hemorrhage. There is a small, densely ossified extra-axial mass lesion along the floor of the left anterior cranial fossa, immediately above the left orbital roof, unchanged when compared to the previous study. There is no definite continuity with the bone at the floor of the skull base (see image #9 of series #9). Evaluation for enhancement is very difficult due to the small size and very dense nature. This could represents a partially calcified meningioma. There does not appear to be significant associated mass effect. No enhancing space-occupying mass lesion is demonstrated. There appears be normal intravascular contrast enhancement in the dural venous sinuses and deep venous structures. The skull and skull base appear intact. Middle ear cavities and mastoid air cells are clear. The paranasal sinuses are essentially clear. CT angiogram head Anterior circulation: There is calcified atherosclerotic plaque scattered throughout the carotid siphons without significant associated internal carotid artery stenosis. No ICA aneurysm is demonstrated. The A1 segment of the right anterior cerebral artery is hypoplastic with larger left A1 segment. An anterior communicating artery is demonstrated. There appears to good filling of the A2 and distal STEFANIE branches bilaterally. No obvious STEFANIE branch occlusion is demonstrated. The middle cerebral arteries are unremarkable. No aneurysm is identified and there is no evidence of occlusion or hemodynamically significant stenosis affecting main branches of either MCA. There appear to be a similar number of opacified M3 and M4 branches bilaterally. Posterior circulation: The vertebral arteries and PICAs are patent. The left PICA is diffusely small; however, no obvious focal stenosis is demonstrated. The basilar artery, superior cerebellar arteries and main branches of the posterior cerebral arteries appear widely patent. There is a moderate- sized right posterior communicating artery. No definite left posterior communicator is demonstrated. No aneurysms are seen arising from the basilar artery trunk or apex. IMPRESSION: Head CT 1. Chronic changes in the brain, as described, appear essentially stable when compared to previous head CT 05/16/2017. 2. No acute intracranial pathology is demonstrated. In particular, there is no intracranial hemorrhage and no evidence of acute, large vessel territory cortical infarction (ASPECTS score = 10) . CT angiogram head Unremarkable study. In particular, no evidence of occlusion or hemodynamically significant stenosis affecting main branches of the anterior or posterior circulations. Referring Provider Line: [phone] SITE ID: [id number] Human Resources Benefits Specialist: Reading Radiologist: Stuart House MD Releasing Radiologist: Stuart House MD Released Date Time: 11/30/171737 cc: Nishant Caban MD; Stan Currie MD ED Principal Behavioral Health Director Name: Stuart House Provider ID: [id number] PT NAME: MALA WALLACE MR#: [id number] ADM IN/OBS AGE: 76 CI DT/TM: 11/30/1709/18/1252 PCP: Nishant Caban MD : 1940 ATT: Mikey Baugh MD SEX: F ORD: Stan Currie MD EXAM: [id number] CT/NECKANG (40313) CT ANGIOGRAM NECK INDICATION: 76-year-old female with transient blindness that has now resolved. Concern for a possible transient ischemic attack/cerebral vascular accident. Please assess. TECHNIQUE: 80 mL of Isovue 300 contrast were injected at a rapid rate through a large bore , left antecubital intravenous catheter. The neck was scanned helically during arterial phase. Data was reconstructed into 0.5 mm axial images. In addition, MIP reconstructions have been generated in multiple projections to allow better assessment of the extracranial carotid and vertebral arteries. Significant arterial stenoses will be assessed using NASCET type measurements. In accordance with CT protocol optimization, one or more of the following dose reduction techniques were utilized for this exam: automated exposure control, adjustment of mA and/or KV based on patient size, or use of iterative reconstructive technique. COMPARISON: None. FINDINGS: There is normal branching of the aortic arch. There is extensive beam-hardening artifact from dense contrast in the overlying left brachiocephalic vein that severely limits assessment of the first-order supra-aortic arteries. There are calcified plaques at the origins of the innominate and left common carotid arteries. No obvious associated stenosis is demonstrated, however, evaluation is severely limited due to the beam-foy artifact. There is partially calcified plaque in proximal 8 mm of the left subclavian artery. The lumen appears to be reduced to about 5.5 mm at level of maximal narrowing. More distally, the artery measures about 8 mm diameter. This is consistent with about a 30% NASCET type stenosis. Right carotid artery: There is partially calcified plaque at the carotid bifurcation. There is severe , eccentric narrowing in mid to distal bulb. At level of maximal narrowing, the lumen is reduced to about 1 mm diameter. More distally, the artery measures close to 4 mm diameter suggesting a roughly 75% NASCET type stenosis. There is moderate narrowing at the origin of the ECA. Left carotid artery: The common carotid artery and carotid bifurcation appear widely patent. The extracranial ICA is elongated and tortuous but appears widely patent. Right vertebral artery: Widely patent from origin to distal V3 segment. Left vertebral artery: The origin and majority of V1 segment are obscured or partially obscured due to beam-hardening artifact from dense contrast in adjacent venous structures. The possibility of stenosis at the origin cannot be excluded. There is mild narrowing in the V2 segment at a few levels, secondary to mass-effect by large, left-sided uncovertebral osteophytes. The V3 segment appears widely patent. Incidentally noted are a few tiny, hypodense lesions in right lobe of thyroid, consistent with benign disease (i.e. adenomas or colloid cysts). IMPRESSION: 1. There is partially calcified atherosclerotic plaque at the right carotid bifurcation with severe , eccentric stenosis in mid to distal right carotid bulb. This appears to represent about 75% NASCET type narrowing. 2. No pathology is identified in the left carotid artery or right vertebral artery. 3. Portions of the V1 segment of the left vertebral artery are obscured due to beam-foy artifact from dense contrast in adjacent venous structures. The possibility of stenosis or dissection cannot be excluded. Mild stenoses in the V2 segment at a few levels ( see above). The V3 segment appears widely patent. A preliminary report for this examination was called to Dr. Currie, following interpretation on 11/30/2017 at approximately 1510 hrs. Referring Provider Line: [phone] SITE ID: [id number] Human Resources Benefits Specialist: Reading Radiologist: Stuart House MD Releasing Radiologist: Sturat House MD Released Date Time: 11/30/17 3236 cc: Nishant Caban MD; Stan Currie MD Principal Behavioral Health Director Name: Stuart House Provider ID: [id number] - FOLLOW UP Follow Up: pt signed AMA and left the hospital. I could not advise the recommendation for pt - TIME SPENT Time Spent in Discharge (Minutes): 70
[2017-12-01] MEDS ORDERED: POLYETHYLENE GLYCOL 3350 17 GM PACKET PO SCH (09:00)
[2017-12-01] MEDS ORDERED: FAMOTIDINE 20 MG TABLET PO SCH (09:00)
[2017-12-01] MEDS ORDERED: ASPIRIN EC 81 MG TABLET PO SCH (09:00)
[2017-12-01] MEDS ORDERED: FLUoxetine 10 MG CAPSULE PO SCH (09:00)
== END 2017-11-30 20:00 | disposition left against medical advice (07) ==
LOC: ED 12:12 → OBS 15:40
PROVIDERS: ADMIT Internal Medicine; ATTEND Internal Medicine
DX: G45.9 Transient cerebral ischemic attack, unspecified (principal); Z86.79 Personal history of other diseases of the circulatory system; K21.9 Gastro-esophageal reflux disease without esophagitis; H40.9 Unspecified glaucoma; R29.700 NIHSS score 0; M19.90 Unspecified osteoarthritis, unspecified site; I65.21 Occlusion and stenosis of right carotid artery; E78.00 Pure hypercholesterolemia, unspecified; F41.9 Anxiety disorder, unspecified; R40.2412 Glasgow coma scale score 13-15, at arrival to emergency department; Z79.899 Other long term (current) drug therapy; Z87.11 Personal history of peptic ulcer disease; Z96.659 Presence of unspecified artificial knee joint
CPT/HCPCS: 36415; 70496; 70498; 80048; 93306; 99283; 99285; A9270; G0378; Q9967; 99284

== ENCOUNTER 2017-12-03 08:38 | Outpatient (CLI) | payer MEDICARE, OTHER ==
[2017-12-03] MEDS ORDERED: GADOBUTROL 7.5 MMOL/7.5 ML SYRINGE ONE (09:12)
[2017-12-03] MEDS ORDERED: GADOBUTROL 7.5 MMOL/7.5 ML SYRINGE IVP ONE (09:50)
--- NOTE | 2017-12-03 15:38 | MRI Report ---
EXAM: MRI BRAIN WITHOUT AND WITH CONTRAST EXAM DATE: 12/03/2017 09:56 AM. CLINICAL HISTORY: 76-year-old woman with carotid artery stenosis and TIA. COMPARISON: CTA on 11/30/2017. TECHNIQUE: Multiplanar, multisequence T1-weighted and fluid-sensitive MR sequences of the brain were performed. Sequences optimized for routine evaluation. Other: None. IV Contrast: 7.5 cc Gadavist. FINDINGS: Parenchyma: No evidence of acute infarct on diffusion weighted sequence. The parenchyma is normal in appearance except for mild burden of nonspecific FLAIR hyperintensity in the periventricular white ma tter, less than commonly seen in this age group. No evidence of prior hemorrhage on susceptibility we ighted sequence. No abnormal enhancement. Pituitary: Unremarkable. Ventricles and Extra-axial Spaces: Ventricles are symmetric and normal in size for age. Extra-axial s paces are unremarkable. No abnormal enhancement. Orbits: Unremarkable except for bilateral lens replacement surgery. Sinuses: Paranasal sinuses and mastoid air cells are clear. Major Vascular Flow Voids: Intact. Dural Venous Sinuses and Major Central Veins: Patent on post-contrast images. IMPRESSION: 1. No acute intracranial abnormality. Specifically, no evidence of acute infarct, hemorrhage, or mass lesion. [facility] Referring Provider Line: [phone] SITE ID: [id number]
== END 2017-12-03 08:39 | disposition home or self-care (01) ==
LOC: DI 08:38
PROVIDERS: ATTEND Family Medicine
DX: I65.29 Occlusion and stenosis of unspecified carotid artery (principal); G45.9 Transient cerebral ischemic attack, unspecified
CPT/HCPCS: 70553; A9585

== ENCOUNTER 2017-12-21 10:36 | Outpatient (CLI) | payer MEDICARE, OTHER ==
[2017-12-21 11:21] LABS: BASOPHILS % (AUTO) 0.7 %; EOSINOPHILS # (AUTO) 0.1 10^3/uL (0.0-0.7); HGB - HEMOGLOBIN 13.7 g/dL (12.0-16.0); LYMPHOCYTES # (AUTO) 1.7 10^3/uL (1.5-3.5); LYMPHOCYTES % (AUTO) 37.6 %; MEAN CORPUSCULAR HEMOGLOBIN 29.8 pg (27.0-31.0); MEAN CORPUSCULAR HGB CONC 33.5 g/dL (32.0-36.0); MEAN CORPUSCULAR VOLUME 88.9 fL (81.0-99.0); MEAN PLATELET VOLUME 8.1 fL (7.9-10.8); MONOCYTES # (AUTO) 0.4 10^3/uL (0.0-1.0); MONOCYTES % (AUTO) 9.4 %; NEUTROPHILS # (AUTO) 2.3 10^3/uL (1.5-6.6); NEUTROPHILS % (AUTO) 50.3 %; PLT - PLATELET COUNT 268 10^3/uL (130-450); RED BLOOD COUNT 4.59 10^6/uL (4.20-5.40); RED CELL DISTRIBUTION WIDTH 13.2 % (12.0-15.0); WHITE BLOOD COUNT 4.6 x10^3/uL (4.8-10.8)
== END 2017-12-21 10:37 | disposition home or self-care (01) ==
LOC: LAB 10:36
PROVIDERS: ATTEND Ophthalmology
DX: M31.6 Other giant cell arteritis (principal)
CPT/HCPCS: 36415; 85025; 85651; 86140

== ENCOUNTER 2018-03-08 08:00 | Outpatient (CLI) | payer MEDICARE, OTHER ==
[2018-03-08 19:26] LABS: BASOPHILS % (AUTO) 0.6 %; EOSINOPHILS # (AUTO) 0.1 10^3/uL (0.0-0.7); EOSINOPHILS % (AUTO) 1.4 %; HGB - HEMOGLOBIN 13.3 g/dL (12.0-16.0); LYMPHOCYTES # (AUTO) 1.6 10^3/uL (1.5-3.5); LYMPHOCYTES % (AUTO) 30.1 %; MEAN CORPUSCULAR HEMOGLOBIN 29.9 pg (27.0-31.0); MEAN CORPUSCULAR HGB CONC 33.4 g/dL (32.0-36.0); MEAN CORPUSCULAR VOLUME 89.3 fL (81.0-99.0); MEAN PLATELET VOLUME 8.1 fL (7.9-10.8); MONOCYTES # (AUTO) 0.4 10^3/uL (0.0-1.0); MONOCYTES % (AUTO) 6.7 %; NEUTROPHILS # (AUTO) 3.2 10^3/uL (1.5-6.6); NEUTROPHILS % (AUTO) 61.2 %; PLT - PLATELET COUNT 294 10^3/uL (130-450); RED BLOOD COUNT 4.45 10^6/uL (4.20-5.40); RED CELL DISTRIBUTION WIDTH 14.2 % (12.0-15.0); WHITE BLOOD COUNT 5.3 x10^3/uL (4.8-10.8)
[2018-03-08 19:31] LABS: ALBUMIN/GLOBULIN RATIO 1.4 (1.0-2.2); BILIRUBIN,TOTAL 0.7 mg/dL (0.2-1.0); CALCIUM 9.4 mg/dL (8.5-10.3); CREATININE 0.6 mg/dL (0.4-1.0); TOTAL PROTEIN 6.9 g/dL (6.7-8.2)
== END 2018-03-08 08:01 | disposition home or self-care (01) ==
LOC: LAB.WCP 08:00
PROVIDERS: ATTEND Nurse Practitioner Gerontology
DX: C18.9 Malignant neoplasm of colon, unspecified (principal)
CPT/HCPCS: 36415; 80053; 82378; 85025

== ENCOUNTER 2018-07-07 08:00 | Outpatient (CLI) | payer MEDICARE, OTHER ==
[2018-07-07 13:10] LABS: BASOPHILS % (AUTO) 0.5 %; EOSINOPHILS % (AUTO) 0.3 %; HGB - HEMOGLOBIN 13.6 g/dL (12.0-16.0); LYMPHOCYTES # (AUTO) 1.6 10^3/uL (1.5-3.5); LYMPHOCYTES % (AUTO) 24.3 %; MEAN CORPUSCULAR HEMOGLOBIN 30.9 pg (27.0-31.0); MEAN CORPUSCULAR HGB CONC 34.3 g/dL (32.0-36.0); MEAN PLATELET VOLUME 8.7 fL (7.9-10.8); MONOCYTES # (AUTO) 0.5 10^3/uL (0.0-1.0); MONOCYTES % (AUTO) 7.5 %; NEUTROPHILS # (AUTO) 4.6 10^3/uL (1.5-6.6); NEUTROPHILS % (AUTO) 67.4 %; PLT - PLATELET COUNT 294 10^3/uL (130-450); WHITE BLOOD COUNT 6.8 x10^3/uL (4.8-10.8)
[2018-07-07 13:27] LABS: % IRON SATURATION 28 % (20-50); ALBUMIN 3.8 g/dL (3.2-5.5); ALBUMIN/GLOBULIN RATIO 1.3 (1.0-2.2); ALKALINE PHOSPHATASE 73 IU/L (42-121); ALT ALANINE AMINOTRANSFERASE 17 IU/L (10-60); AST ASPARTATE AMINOTRANSFERASE 18 IU/L (10-42); BILIRUBIN,TOTAL 0.7 mg/dL (0.2-1.0); BUN - BLOOD UREA NITROGEN 13 mg/dL (6-20); CALCIUM 9.1 mg/dL (8.5-10.3); CARBON DIOXIDE - CO2 26 mmol/L (21-32); CHLORIDE 105 mmol/L (101-111); CHOLESTEROL 201 mg/dL; CREATININE 0.6 mg/dL (0.4-1.0); GFR - MDRD 97 (>89); GLUCOSE 91 mg/dL (70-100); HDL CHOLESTEROL 68 mg/dL; IRON 106 ug/dL (28-170); LDL CHOLESTEROL,CALCULATED 104 mg/dL; LDL/HDL RATIO 1.5 (<4.4); SODIUM 140 mmol/L (135-145); TOTAL IRON BINDING CAPACITY 382 ug/dL (250-450); TOTAL PROTEIN 6.8 g/dL (6.7-8.2); TRANSFERRIN 273 mg/dL (192-382); VLDL CHOLESTEROL 29 mg/dL
== END 2018-07-07 23:59 | disposition home or self-care (01) ==
LOC: LAB.WCP 08:00
PROVIDERS: ATTEND Family Medicine
DX: G45.9 Transient cerebral ischemic attack, unspecified (principal); I65.29 Occlusion and stenosis of unspecified carotid artery; D50.9 Iron deficiency anemia, unspecified
CPT/HCPCS: 36415; 80053; 80061; 83540; 83721; 84466; 85025

== ENCOUNTER 2018-08-16 08:00 | Outpatient (CLI) | payer MEDICARE, OTHER ==
[2018-08-16 12:24] LABS: BASOPHILS % (AUTO) 0.8 %; EOSINOPHILS # (AUTO) 0.1 10^3/uL (0.0-0.7); HGB - HEMOGLOBIN 13.6 g/dL (12.0-16.0); LYMPHOCYTES # (AUTO) 1.4 10^3/uL (1.5-3.5); MEAN CORPUSCULAR HEMOGLOBIN 31.1 pg (27.0-31.0); MEAN CORPUSCULAR HGB CONC 34.1 g/dL (32.0-36.0); MEAN CORPUSCULAR VOLUME 91.2 fL (81.0-99.0); MEAN PLATELET VOLUME 8.6 fL (7.9-10.8); MONOCYTES # (AUTO) 0.5 10^3/uL (0.0-1.0); MONOCYTES % (AUTO) 8.2 %; NEUTROPHILS # (AUTO) 3.9 10^3/uL (1.5-6.6); PLT - PLATELET COUNT 302 10^3/uL (130-450); RED BLOOD COUNT 4.36 10^6/uL (4.20-5.40); RED CELL DISTRIBUTION WIDTH 14.1 % (12.0-15.0)
[2018-08-16 12:48] LABS: ALBUMIN/GLOBULIN RATIO 1.4 (1.0-2.2); BILIRUBIN,TOTAL 0.7 mg/dL (0.2-1.0); CALCIUM 9.2 mg/dL (8.5-10.3); CREATININE 0.7 mg/dL (0.4-1.0); TOTAL PROTEIN 6.9 g/dL (6.7-8.2)
== END 2018-08-16 23:59 | disposition home or self-care (01) ==
LOC: LAB.WCP 08:00
PROVIDERS: ATTEND Family Medicine
DX: R10.9 Unspecified abdominal pain (principal)
CPT/HCPCS: 36415; 80053; 83690; 85025

== ENCOUNTER 2018-08-24 09:00 | Outpatient (CLI) | payer MEDICARE, OTHER | END 2018-08-24 23:59 | disposition home or self-care (01) | LOC: LAB.R 09:00 | PROVIDERS: ATTEND Family Medicine | DX: R19.7 Diarrhea, unspecified (principal) | CPT/HCPCS: 83630; 87045; 87046; 87493 ==

== ENCOUNTER 2018-09-05 14:51 | Outpatient (CLI) | payer MEDICARE, OTHER ==
[2018-09-05 18:56] LABS: BASOPHILS % (AUTO) 0.5 %; EOSINOPHILS # (AUTO) 0.1 10^3/uL (0.0-0.7); EOSINOPHILS % (AUTO) 1.1 %; HGB - HEMOGLOBIN 13.3 g/dL (12.0-16.0); LYMPHOCYTES # (AUTO) 1.7 10^3/uL (1.5-3.5); LYMPHOCYTES % (AUTO) 33.6 %; MEAN CORPUSCULAR HEMOGLOBIN 30.9 pg (27.0-31.0); MEAN CORPUSCULAR HGB CONC 33.2 g/dL (32.0-36.0); MEAN CORPUSCULAR VOLUME 93.2 fL (81.0-99.0); MEAN PLATELET VOLUME 8.7 fL (7.9-10.8); MONOCYTES # (AUTO) 0.4 10^3/uL (0.0-1.0); MONOCYTES % (AUTO) 8.1 %; NEUTROPHILS # (AUTO) 2.9 10^3/uL (1.5-6.6); NEUTROPHILS % (AUTO) 56.7 %; PLT - PLATELET COUNT 296 10^3/uL (130-450); RED BLOOD COUNT 4.29 10^6/uL (4.20-5.40); RED CELL DISTRIBUTION WIDTH 13.5 % (12.0-15.0); WHITE BLOOD COUNT 5.2 x10^3/uL (4.8-10.8)
[2018-09-05 19:28] LABS: ALBUMIN 4.1 g/dL (3.2-5.5); ALBUMIN/GLOBULIN RATIO 1.5 (1.0-2.2); BILIRUBIN,TOTAL 0.7 mg/dL (0.2-1.0); CALCIUM 9.4 mg/dL (8.5-10.3); CREATININE 0.7 mg/dL (0.4-1.0); TOTAL PROTEIN 6.9 g/dL (6.7-8.2)
== END 2018-09-05 14:52 | disposition home or self-care (01) ==
LOC: LAB.WCP 14:51
PROVIDERS: ATTEND Nurse Practitioner Gerontology
DX: Z85.038 Personal history of other malignant neoplasm of large intestine (principal)
CPT/HCPCS: 36415; 80053; 82378; 85025

== ENCOUNTER 2019-09-19 09:36 | Outpatient (CLI) | payer MEDICARE, OTHER | END 2019-09-19 23:59 | disposition home or self-care (01) | LOC: LAB.WCP 09:36 | PROVIDERS: ATTEND Family Medicine | DX: I65.29 Occlusion and stenosis of unspecified carotid artery (principal) | CPT/HCPCS: 36415; 85651 ==

== ENCOUNTER 2019-10-15 19:38 | Emergency (ER) | payer MEDICARE, OTHER ==
--- NOTE | 2019-10-15 20:09 | ED Physician Documentation ---
PD HPI HEAD INJURY - Stated complaint Stated Complaint: GLF - HIT HEAD - Chief complaint Chief Complaint: Trauma Hd/Nk - History obtained from History obtained from: Patient - Additional information Additional information: Patient comes emergency department complaining of ongoing headache and an episode of dizziness today after tripping and falling and hitting the back of her head on the edge of a door 4 days ago. Patient states that the door was not made of solid wood and that she felt it give when she had it. She did not lose consciousness. Patient states that she had a sore area in her occiput where she struck her head, but no swelling. She states that ever since she fell, she is been having shooting pains going down her neck and up over her head. She states the bones of her neck do not hurt. The patient denies any visual changes. No nausea or vomiting. No focal weakness. No aphasia or dysarthria. She states that she woke up after a nap today and noticed that she felt as though she was having some vertigo. She states she has had vertigo in the past so this is not necessarily unusual for her. However, she also had a spontaneous subarachnoid hemorrhage several years ago and is on baby aspirin every day, and wanted to make sure that everything was okay because she lives alone. Patient denies any recent illness. She states she is on medication for blood pressure and also takes Lipitor, but is otherwise fairly healthy. She has a carotid endarterectomy scheduled for early next month. No other complaints at this time. Review of Systems Ten Systems: 10 systems reviewed and negative Constitutional: reports: Reviewed and negative Eyes: reports: Reviewed and negative Ears: reports: Reviewed and negative Nose: reports: Reviewed and negative Throat: reports: Reviewed and negative Cardiac: reports: Reviewed and negative Respiratory: reports: Reviewed and negative GI: reports: Reviewed and negative : reports: Reviewed and negative Skin: reports: Reviewed and negative Musculoskeletal: reports: Reviewed and negative Neurologic: reports: Reviewed and negative Psychiatric: reports: Reviewed and negative Endocrine: reports: Reviewed and negative Immunocompromised: reports: Reviewed and negative PD PAST MEDICAL HISTORY - Past Medical History Cardiovascular: High cholesterol Respiratory: None Endocrine/Autoimmune: None GI: GERD, Ulcers, Other PROCESS LEAD: Breast cancer : None HEENT: Glaucoma Psych: None Musculoskeletal: Osteoarthritis Derm: None - Past Surgical History Past Surgical History: Yes General: Colonoscopy, EGD, Other Ortho: Knee replacement, Carpal Tunnel surgery /PROCESS LEAD: Other HEENT: Cataracts - Present Medications Home Medications: Ambulatory Orders Medication Instructions Recorded Confirmed Cholecalciferol (Vitamin D3) 2,000 units PO DAILY 12/14/13 11/30/17 [Vitamin D-3] Atorvastatin Calcium [Lipitor] 40 mg PO DAILY 07/29/14 11/30/17 Fluoxetine HCl [Prozac] 20 mg ORAL DAILY 04/02/17 11/30/17 Esomeprazole Magnesium 40 mg PO DAILY 11/30/17 11/30/17 - Allergies Allergies/Adverse Reactions: Allergies Allergy/AdvReac Type Severity Reaction Status Date / Time valdecoxib AdvReac Intermediate ulcers Verified 10/15/19 19:41 codeine AdvReac Nausea Verified 10/15/19 19:41 antiinflammatorys AdvReac Severe Nausea Uncoded 10/15/19 19:41 narcotics AdvReac Unknown Uncoded 10/15/19 19:41 - Social History Does the pt smoke?: No Smoking Status: Former smoker Does the pt drink ETOH?: No Does the pt have substance abuse?: No - Immunizations Immunizations are current?: Yes - POLST Patient has POLST: No POLST Status: Full Code PD ED PE NORMAL - Vitals Vital signs reviewed: Yes - General General: Alert and oriented X 3, No acute distress - HEENT HEENT: Atraumatic, PERRL, EOMI, Moist mucous membranes - Neck Neck: Supple, no meningeal sign, No bony TTP, Other (Patient has mild bilateral anterior cervical lymphadenopathy.) - Cardiac Cardiac: RRR, No murmur, Strong equal pulses - Respiratory Respiratory: No respiratory distress, Clear bilaterally - Back Back: No spinal TTP - Derm Derm: Normal color, Warm and dry, No rash - Extremities Extremities: No deformity - Neuro Neuro: Alert and oriented X 3, stencil sprayer 2-12 intact, No motor deficit, No sensory def icit, Normal speech, Other (Normal gait, no ataxia.) - Psych Psych: Normal mood, Normal affect Results - Vitals Vitals: Vital Signs - 24 hr 10/15/19 10/15/19 19:41 21:00 Temperature 36.5 C 36.9 C Heart Rate 64 61 Respiratory 14 15 Rate Blood Pressure 155/72 H 117/95 H O2 Saturation 96 99 Oxygen O2 Source Room air - Rads (name of study) CT head Radiology: Final report received, EMP read indepedently, See rad report PD MEDICAL DECISION MAKING - ED course Complexity details: reviewed results, re-evaluated patient, considered differential, d/w patient ED course: Based on the patient's age and ongoing symptoms, she was worked up with a CT scan of the head, which was negative, other than age-related changes. Patient was very well-appearing in the emergency department, and I feel she was stable for discharge home. I discussed with her the home management of the symptoms, as well as the usual indications for return. Departure - Departure Disposition: Home, Self Care Clinical Impression: Closed head injury Qualifiers: Encounter type: initial encounter Qualified Code(s): S09.90XA - Unspecified injury of head, initial encounter Headache Qualifiers: Headache type: unspecified Headache chronicity pattern: acute headache Intractability: not intractable Qualified Code(s): R51 - Headache Condition: Good Instructions: ED Head Injury Closed Comments: The CT scan of your head looks good. There is no evidence of bleeding or other concerning findings. Discharge Date/Time: 10/15/19 21:00
--- NOTE | 2019-10-15 20:39 | CT Report ---
Reason: head trauma Procedure Date: 10/15/2019 Accession Number: [id number] / [id number] Procedure: CT - HEAD WO CPT Code: Final Report FULL RESULT: EXAM: CT HEAD EXAM DATE: 10/15/2019 08:14 PM. CLINICAL HISTORY: Fall. Headache. Head trauma. Balance issues. COMPARISON: HEAD ANGIO 11/30/2017 2:13 PM. TECHNIQUE: Multiaxial CT images were obtained from the foramen magnum to the vertex. Reformats: Sagittal and coronal. IV contrast: None. In accordance with CT protocol optimization, one or more of the following dose reduction techniques were utilized for this exam: automated exposure control, adjustment of mA and/or KV based on patient size, or use of iterative reconstructive technique. FINDINGS: Parenchyma: No intraparenchymal hemorrhage. No evidence of mass, midline shift, or CT findings of acute infarction. Gan-white differentiation is distinct. Stable minimal chronic microangiopathic white matter changes are evident. Extraaxial Spaces: Normal for age. No subdural or epidural collections identified. Ventricles: The ventricles and cortical sulci are prominent, consistent with age-related tissue loss. Sinuses and orbits: Imaged paranasal sinuses, orbits, and mastoids show no significant abnormality. Bones: No evidence of fracture or calvarial defect. Other: None. IMPRESSION: Stable age-related cortical atrophic changes without evidence of acute intracranial abnormality. [facility]
[2019-10-15 21:01] VITALS: BP 117/95
== END 2019-10-15 21:00 | disposition home or self-care (01) ==
LOC: ED 19:38
DX: S09.90XA Unspecified injury of head, initial encounter (principal); W01.198A Fall on same level from slipping, tripping and stumbling with subsequent striking against other object, initial encounter; R51 Headache; Z87.891 Personal history of nicotine dependence
CPT/HCPCS: 70450; 99284

== ENCOUNTER 2020-02-04 08:00 | Outpatient (CLI) | payer MEDICARE, OTHER | END 2020-02-04 23:59 | disposition home or self-care (01) | LOC: LAB.WCP 08:00 | PROVIDERS: ATTEND Family Medicine | DX: Z53.9 Procedure and treatment not carried out, unspecified reason (principal) ==

== ENCOUNTER 2020-03-28 19:06 | Outpatient (CLI) | payer MEDICARE, OTHER | END 2020-03-28 19:07 | disposition EMS.NT | LOC: EMS 19:06 | PROVIDERS: ATTEND Surgery | DX: S01.112A Laceration without foreign body of left eyelid and periocular area, initial encounter (principal); W01.0XXA Fall on same level from slipping, tripping and stumbling without subsequent striking against object, initial encounter; Y92.009 Unspecified place in unspecified non-institutional (private) residence as the place of occurrence of the external cause ==

== ENCOUNTER 2020-03-28 19:45 | Emergency (ER) | payer MEDICARE, OTHER ==
[2020-03-28] MEDS ORDERED: LIDOCAINE-EPINEPH-TETRACAINE 3 ML SYRINGE TOP STA (20:37)
--- NOTE | 2020-03-28 21:16 | CT Report ---
PROCEDURE: HEAD WO INDICATIONS: fall, closed head injury TECHNIQUE: Noncontrast 4.5 mm thick angled axial sections acquired from the foramen magnum to the vertex. For r adiation dose reduction, the following was used: automated exposure control, adjustment of mA and/or kV according to patient size. COMPARISON: 10/15/2019 FINDINGS: Image quality: Excellent. CSF spaces: Basal cisterns are patent. No extra-axial fluid collections. The ventricles are symmet niki in size and shape. Brain: No intracranial bleeds or masses. There is cerebral volume loss for age, with resultant vent ricular and sulcal prominence. There are periventricular and deep white matter chronic small vessel ischemic changes. There is intracranial internal carotid artery atherosclerosis. Skull and face: Calvarium and visualized facial bones appear intact, without suspicious lesions. Sinuses: Visualized sinuses and mastoids are clear. IMPRESSION: No acute intracranial disease process. Reviewed by: Luana Valentin MD, PhD on 03/28/2020 9:15 PM PDT Approved by: Luana Valentin MD, PhD on 03/28/2020 9:15 PM PDT Station ID: [id number]
--- NOTE | 2020-03-28 21:17 | ED Physician Documentation ---
History of Present Illness - Stated complaint Stated Complaint: GLF - Chief complaint Chief Complaint: Laceration - History obtained from History obtained from: Patient, Family - History of Present Illness Timing: Today Pain level max: 2 Pain level now: 1 - Additonal information Additional information: fall, L eye pain. Tripped and landed on carpet. No LOC. not on blood thinners. No visual changes. Has a laceration/abrasion to the left eyelid. Denies being on blood thinners. No neck or back pain. No extremity pain. No intraoral injury Review of Systems Constitutional: denies: Fever, Chills Eyes: denies: Loss of vision, Decreased vision, Photophobia, Irritation Ears: denies: Ear pain, Drainage/discharge Nose: denies: Rhinorrhea / runny nose, Congestion Throat: denies: Sore throat Cardiac: denies: Chest pain / pressure, Palpitations Respiratory: denies: Dyspnea, Cough GI: denies: Nausea, Vomiting, Diarrhea Skin: denies: Rash Musculoskeletal: denies: Neck pain, Back pain Neurologic: denies: Focal weakness, Numbness, Confused, Headache, LOC PD PAST MEDICAL HISTORY - Past Medical History Cardiovascular: Hypertension, High cholesterol Respiratory: None Neuro: Head injury Endocrine/Autoimmune: None GI: GERD, Ulcers, Other 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: Breast cancer : None HEENT: Glaucoma Psych: Depression, Anxiety Musculoskeletal: Osteoarthritis Derm: None - Past Surgical History Past Surgical History: Yes General: Colonoscopy, EGD, Other Ortho: Knee replacement, Carpal Tunnel surgery /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: Other HEENT: Cataracts - Present Medications Home Medications: Ambulatory Orders Medication Instructions Recorded Confirmed Cholecalciferol (Vitamin D3) 2,000 units PO DAILY 12/14/13 11/30/17 [Vitamin D-3] Atorvastatin Calcium [Lipitor] 40 mg PO DAILY 07/29/14 11/30/17 Fluoxetine HCl [Prozac] 20 mg ORAL DAILY 04/02/17 11/30/17 Esomeprazole Magnesium 40 mg PO DAILY 11/30/17 11/30/17 - Allergies Allergies/Adverse Reactions: Allergies Allergy/AdvReac Type Severity Reaction Status Date / Time celecoxib [From Celebrex] Allergy Unknown Verified 03/28/20 19:49 valdecoxib AdvReac Intermediate ulcers Verified 03/28/20 19:49 codeine AdvReac Nausea Verified 03/28/20 19:49 antiinflammatorys AdvReac Severe Nausea Uncoded 03/28/20 19:49 narcotics AdvReac Unknown Uncoded 03/28/20 19:49 - Social History Does the pt smoke?: No Smoking Status: Never smoker Does the pt drink ETOH?: No Does the pt have substance abuse?: No - Immunizations Immunizations are current?: Yes - POLST Patient has POLST: No POLST Status: Full Code PD ED PE NORMAL - Vitals Vital signs reviewed: Yes - General General: Alert and oriented X 3, No acute distress, Well developed/nourished - HEENT HEENT: PERRL, Ears normal, Pharynx benign, Other (Periorbital contusion and ecchymosis to the left periorbital area. Abrasion to the left upper eyelid. Otherwise normal examination of the head and face. Normal intraoral exam.) - Neck Neck: Supple, no meningeal sign, No bony TTP - Cardiac Cardiac: RRR - Respiratory Respiratory: No respiratory distress, Clear bilaterally - Abdomen Abdomen: Soft, Non tender, Non distended - Back Back: No spinal TTP - Derm Derm: Warm and dry - Neuro Neuro: Alert and oriented X 3 - Psych Psych: Normal mood, Normal affect Results - Vitals Vitals: Vital Signs - 24 hr 03/28/20 03/28/20 03/28/20 19:49 20:01 21:20 Temperature 37 C 36.2 C L Heart Rate 88 76 65 Respiratory 20 16 18 Rate Blood Pressure 143/79 H 116/93 H 154/86 H O2 Saturation 96 98 94 03/28/20 21:36 Temperature 36.6 C Heart Rate 74 Respiratory 18 Rate Blood Pressure 146/89 H O2 Saturation 96 Oxygen O2 Source Room air - Rads (name of study) head CT Radiology: Prelim report reviewed, EMP read contemporaneously, See rad report maxillofacial CT Radiology: Prelim report reviewed, EMP read contemporaneously, See rad report Procedures - Laceration (location) eyelid left Length in cm: 1 Wound type: Other (abrasion) Neurovascular status: Sensory intact, Motor intact, Vascular intact Anesthesia: LET Wound Preparation: Irrigated copiously NS Skin layer closure: Dermabond Other: Patient tolerated well, No complications, Neurovascular intact, Dressing applied, Tetanus UTD Complexity: Simple PD MEDICAL DECISION MAKING - ED course Complexity details: reviewed results, re-evaluated patient, considered differential, d/w patient ED course: No acute abnormalities on CT scans. Ambulating well. No neurological deficits. Patient is well-appearing, nontoxic. Afebrile. No evidence of intracranial hemorrhage or skull fracture. Patient counseled regarding signs and symptoms for which I believe and urgent re-evaluation would be necessary. Patient with good understanding of and agreement to plan and is comfortable going home at this time This document was made in part using voice recognition software. While efforts are made to proofread this document, sound alike and grammatical errors may occur. Departure - Departure Disposition: Home, Self Care Clinical Impression: Abrasion Periorbital contusion of left eye Qualifiers: Encounter type: initial encounter Qualified Code(s): S05.12XA - Contusion of eyeball and orbital tissues, left eye, initial encounter Condition: Good Instructions: ED Abrasion, ED Contusion Face Follow-Up: Nishant Caban MD [Primary Care Provider] - Within 1 week Comments: Your CAT scans do not show any acute abnormalities today. The glue should dissolve and fall off on its own in a few days to a week. Return if you worsen, including worsening swelling, redness, drainage. Discharge Date/Time: 03/28/20 22:05
--- NOTE | 2020-03-28 21:21 | CT Report ---
PROCEDURE: MAXILLOFACIAL WO INDICATIONS: fall, L periorbital ecchymosis TECHNIQUE: Noncontrast 1.5 mm thick axial images acquired from the mandible through the frontal sinuses, with co jackson and sagittal reformatting. For radiation dose reduction, the following was used: automated ex posure control, adjustment of mA and/or kV according to patient size. COMPARISON: None. FINDINGS: Image quality: Excellent. Bones and teeth: Orbital hernandez are intact. Sinus hernandez show no fracture or deformity. Nasal bones and septum are intact. Visualized portions of the mandible demonstrate no fractures or subluxation. Zygomatic arches are intact. Pterygoid plates are intact. Visualized portions of the skull base an d auditory canals are intact. Spine degenerative disc disease and facet arthropathy are noted. Bilate ral temporomandibular joint osteoarthritis. Sinuses: Paranasal sinuses are aerated, without fluid levels, mucosal thickening, or mucoceles. Mas toid air cells are aerated. Soft tissues: Left periorbital and malar eminence soft tissue swelling. No enlarged lymph nodes. No soft tissue lacerations or debris. Vascular: Visualized vascular structures appear normal in the absence of contrast. Bony vascular fo ramina and canals are intact. IMPRESSION: No fracture. Reviewed by: Luana Valentin MD, PhD on 03/28/2020 9:19 PM PDT Approved by: Luana Valentin MD, PhD on 03/28/2020 9:19 PM PDT Station ID: [id number]
[2020-03-28 21:36] VITALS: BP 146/89
== END 2020-03-28 22:05 | disposition home or self-care (01) ==
LOC: ED 19:45
DX: S00.212A Abrasion of left eyelid and periocular area, initial encounter (principal); S05.12XA Contusion of eyeball and orbital tissues, left eye, initial encounter; W01.0XXA Fall on same level from slipping, tripping and stumbling without subsequent striking against object, initial encounter
CPT/HCPCS: 12011; 70450; 70486; 99284

== ENCOUNTER 2020-04-10 06:23 | Day surgery (SDC) | payer MEDICARE, OTHER ==
[2020-04-10] MEDS ORDERED: MIDAZOLAM 2 MG/2 ML VIAL IVP ONE (06:24)
[2020-04-10] MEDS ORDERED: MIDAZOLAM 10 MG/2 ML VIAL IVP ONE (06:24)
[2020-04-10] MEDS ORDERED: fentaNYL 250 MCG/5 ML VIAL IVP ONE (06:24)
[2020-04-10] MEDS ORDERED: LIDO GARGLE 30 ML BOTTLE PO ONE ×2 (07:09→07:54)
[2020-04-10] MEDS ORDERED: BENZOCAINE/TETRACAINE/BUTAMBEN 20 GM TOP ONE ×2 (07:10→07:54)
[2020-04-10] MEDS ORDERED: LIDO GARGLE 30 ML BOTTLE ONE (07:16)
[2020-04-10] MEDS ORDERED: LACTATED RINGERS 500 ML IV ONE (08:36)
[2020-04-10 09:08] VITALS: BP 112/80
== END 2020-04-10 06:24 | disposition home or self-care (01) ==
LOC: SDS 06:23
PROVIDERS: ATTEND Surgery
PROC: 0DB68ZX Excision of Stomach, Via Natural or Artificial Opening Endoscopic, Diagnostic (ICD-10-PCS; 2020-04-10)
PROC: 0DB48ZX Excision of Esophagogastric Junction, Via Natural or Artificial Opening Endoscopic, Diagnostic (ICD-10-PCS; 2020-04-10)
PROC: 0DJD8ZZ Inspection of Lower Intestinal Tract, Via Natural or Artificial Opening Endoscopic (ICD-10-PCS; principal; 2020-04-10 07:30)
PROC: 0DB98ZX Excision of Duodenum, Via Natural or Artificial Opening Endoscopic, Diagnostic (ICD-10-PCS; 2020-04-10 07:30)
DX: Z08 Encounter for follow-up examination after completed treatment for malignant neoplasm (principal); K21.9 Gastro-esophageal reflux disease without esophagitis; R19.4 Change in bowel habit; Z85.038 Personal history of other malignant neoplasm of large intestine; K64.8 Other hemorrhoids; Z98.0 Intestinal bypass and anastomosis status; K31.7 Polyp of stomach and duodenum; K44.9 Diaphragmatic hernia without obstruction or gangrene
CPT/HCPCS: 43239; 45378; A9270; J3010; J7120

== ENCOUNTER 2021-01-29 12:51 | Outpatient (CLI) | payer MEDICARE, OTHER ==
--- NOTE | 2021-01-29 15:03 | XRAY Report ---
PROCEDURE: Knee 3 View LT INDICATIONS: OSTEOMA TECHNIQUE: 3 views of the left knee(s) were acquired. COMPARISON: None. FINDINGS: No acute fracture identified. Scattered subchondral sclerosis and spurring. Moderate narrowing of th e medial joint space. No definite joint effusion. IMPRESSION: Mild/moderate left knee osteoarthritis. Reviewed by: Lewis Wright MD on 01/29/2021 3:02 PM PDT Approved by: Lewis Wright MD on 01/29/2021 3:02 PM PDT Station ID: [id number]
--- NOTE | 2021-01-29 16:34 | XRAY Report ---
PROCEDURE: Shoulder 3 View RT INDICATIONS: BURSITIS OF RIGHT SHOULDER TECHNIQUE: 3 views of the shoulder were acquired. COMPARISON: None. FINDINGS: Bones: No fractures or dislocations. No suspicious bony lesions. Visualized ribs appear intact. S evere acromioclavicular degenerative narrowing. Soft tissues: No suspicious soft tissue calcifications. IMPRESSION: Severe acromioclavicular degenerative narrowing. Reviewed by: Carey Perales MD on 01/29/2021 4:32 PM PDT Approved by: Carey Perales MD on 01/29/2021 4:32 PM PDT Station ID: [id number]
== END 2021-01-29 12:52 | disposition home or self-care (01) ==
LOC: DI.N 12:51
PROVIDERS: ATTEND Family Medicine
DX: M75.51 Bursitis of right shoulder (principal); M19.011 Primary osteoarthritis, right shoulder; D16.22 Benign neoplasm of long bones of left lower limb; M17.12 Unilateral primary osteoarthritis, left knee

== ENCOUNTER 2021-06-15 11:15 | Outpatient (CLI) | payer MEDICARE, OTHER ==
--- NOTE | 2021-06-15 13:48 | XRAY Report ---
PROCEDURE: Shoulder 3 View BILAT INDICATIONS: DJD BILATERAL AC JOINT TECHNIQUE: 4 views of the each shoulder were acquired. COMPARISON: Right shoulder 01/29/2021. FINDINGS: Bones: Severe bilateral degenerative hypertrophy at the acromioclavicular joint. Degenerative change at the glenohumeral joints. No fractures or dislocations. No suspicious bony lesions. Visualized r ibs appear intact. Soft tissues: No suspicious soft tissue calcifications. 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 Reviewed by: Mark Starr MD on 06/15/2021 1:47 PM PST Approved by: Mark Starr MD on 06/15/2021 1:47 PM PST Station ID: [id number]
== END 2021-06-15 23:59 | disposition home or self-care (01) ==
LOC: DI.N 11:15
PROVIDERS: ATTEND Physician Assistant
DX: M19.012 Primary osteoarthritis, left shoulder (principal); M19.011 Primary osteoarthritis, right shoulder

== ENCOUNTER 2021-08-31 08:00 | Outpatient (CLI) | payer MEDICARE, OTHER ==
[2021-08-31 11:50] LABS: BASOPHILS % (AUTO) 0.6 %; EOSINOPHILS # (AUTO) 0.1 10^3/uL (0.0-0.7); EOSINOPHILS % (AUTO) 1.2 %; HCT - HEMATOCRIT 42.3 % (37.0-47.0); HGB - HEMOGLOBIN 14.1 g/dL (12.0-16.0); LYMPHOCYTES # (AUTO) 2.2 10^3/uL (1.5-3.5); LYMPHOCYTES % (AUTO) 33.1 %; MEAN CORPUSCULAR HEMOGLOBIN 29.7 pg (27.0-31.0); MEAN CORPUSCULAR HGB CONC 33.3 g/dL (32.0-36.0); MEAN CORPUSCULAR VOLUME 89.2 fL (81.0-99.0); MEAN PLATELET VOLUME 10.2 fL (7.9-10.8); MONOCYTES # (AUTO) 0.5 10^3/uL (0.0-1.0); MONOCYTES % (AUTO) 7.1 %; NEUTROPHILS # (AUTO) 3.7 10^3/uL (1.5-6.6); NEUTROPHILS % (AUTO) 57.1 %; PLT - PLATELET COUNT 364 10^3/uL (130-450); RED BLOOD COUNT 4.74 10^6/uL (4.20-5.40); RED CELL DISTRIBUTION WIDTH 12.6 % (12.0-15.0); WHITE BLOOD COUNT 6.5 x10^3/uL (4.8-10.8)
[2021-08-31 12:17] LABS: ALBUMIN/GLOBULIN RATIO 1.2 (1.0-2.2); ALKALINE PHOSPHATASE 78 IU/L (42-121); ALT ALANINE AMINOTRANSFERASE 15 IU/L (10-60); AST ASPARTATE AMINOTRANSFERASE 14 IU/L (10-42); BILIRUBIN,TOTAL 0.9 mg/dL (0.2-1.0); BUN - BLOOD UREA NITROGEN 19 mg/dL (6-20); CALCIUM 9.3 mg/dL (8.5-10.3); CARBON DIOXIDE - CO2 28 mmol/L (21-32); CHLORIDE 102 mmol/L (101-111); CHOL/HDL RATIO 3.8 (<4.4); CHOLESTEROL 309 mg/dL; CREATININE 0.8 mg/dL (0.4-1.0); GFR - MDRD 69 (>89); GLUCOSE 97 mg/dL (70-100); HDL CHOLESTEROL 81 mg/dL; LDL CHOLESTEROL,CALCULATED 201 mg/dL; LDL/HDL RATIO 2.5 (<4.4); POTASSIUM 4.2 mmol/L (3.5-5.0); SODIUM 140 mmol/L (135-145); TOTAL PROTEIN 7.3 g/dL (6.7-8.2); TRIGLYCERIDES 133 mg/dL; VLDL CHOLESTEROL 27 mg/dL
[2021-08-31 12:21] LABS: THYROID STIMULATING HORMONE 4.81 uIU/mL (0.34-5.60)
== END 2021-08-31 23:59 ==
LOC: LAB.WCP 08:00
PROVIDERS: ATTEND Family Medicine
DX: I10 Essential (primary) hypertension (principal); M75.101 Unspecified rotator cuff tear or rupture of right shoulder, not specified as traumatic; R53.83 Other fatigue; M19.012 Primary osteoarthritis, left shoulder; M19.011 Primary osteoarthritis, right shoulder; K21.9 Gastro-esophageal reflux disease without esophagitis; I65.29 Occlusion and stenosis of unspecified carotid artery; E78.5 Hyperlipidemia, unspecified; Z63.8 Other specified problems related to primary support group
CPT/HCPCS: 36415; 80053; 80061; 83721; 84443; 85025

== ENCOUNTER 2022-04-20 15:00 | Outpatient (CLI) | payer MEDICARE, OTHER | END 2022-04-20 15:01 | disposition short-term general hospital (02) | LOC: EMS 15:00 | DX: R55 Syncope and collapse (principal); R19.7 Diarrhea, unspecified; R11.2 Nausea with vomiting, unspecified | CPT/HCPCS: A0425; A0427 ==